=== PATIENT | female | born 1985 | race Hispanic/Latino ===

== ENCOUNTER 2022-07-21 10:12 | Day surgery (SDC) | payer OTHER ==
[2022-07-21] MEDS ORDERED: Ringers Lactate 1,000 ML IV ONE (10:39)
[2022-07-21] MEDS ORDERED: propofoL 200 MG/20 ML VIAL IV ONE (12:13)
[2022-07-21] MEDS ORDERED: LIDOCAINE 1% MPF 5 ML VIAL ONE (12:13)
[2022-07-21 13:41] VITALS: O2SAT 100
[2022-07-21 13:43] VITALS: BP 111/73; TEMP 97.7
== END 2022-07-21 13:36 | disposition home or self-care (01) ==
LOC: OR 10:12
PROVIDERS: ATTEND Surgery
PROC: 0DBN8ZX Excision of Sigmoid Colon, Via Natural or Artificial Opening Endoscopic, Diagnostic (ICD-10-PCS; principal; 2022-07-21 12:15)
DX: K62.5 Hemorrhage of anus and rectum (principal); K63.5 Polyp of colon; K57.30 Diverticulosis of large intestine without perforation or abscess without bleeding; K64.8 Other hemorrhoids
CPT/HCPCS: 88305; 45380; J2704; J2001; J7120

== ENCOUNTER 2022-12-05 06:30 | Emergency (ER) | payer OTHER ==
--- OUTSIDE RECORDS SUMMARY | 2022-12-05 06:35 | XMS REPORT | Continuity of Care Document ---
:1985 Author Organization [facility] t Address [address] [place] [address] [place] [id number] Care Team Providers Name Role Phone PCP, PATIENT DOES NOT HAVE A Primary Care Physician UnavailCt Holm Attending Clinician Unavailable RADIOLOGY Attending Clinician Unavailable Olivier Miller MD Attending Clinician Doctor Unassigned, [place] Attending Clinician Unavailable OLIVIER MILLER Attending Clinician Unavailable OLIVIER MILLER Attending Clinician Unavailable Radiology Attending Clinician Unavailable Makenzie Douglas RN Attending Clinician Unavailable EDILSON CANNON Attending Clinician Unavailable Only, Ang Db Test Attending Clinician Unavailable Edilson Flores Attending Clinician KAREN MA Admitting Clinician Unavailable Payers Payer Name Policy Type Policy Number Effective Date Expiration Date Guerrero MARTINEZ II [id number] 2021 00:00:00 Problems Condition Condition Condition Status Onset Resolution Last Treating Co mments Source Name Details Category Date Date Treatment Clinician Date No known No known Disease Unive rs active active ity of problems problems [facility] Allergies, Adverse Reactions, Alerts Allergy Allergy Status Severity Reaction(s) Onset Inactive Treating Comm ents Source Name Type Date Date Clinician No Known DA Active [facility] All[facility]ie 3-17 [place] 00:[facility]: d 00 [facility] No Known DA Active U [facility] Allergie 3-17 [place] 00:00: d 00 [facility] NO KNOWN Drug Active Univers ALLERGIE Class ity of S [place] [facility] Social History Social Habit Start Date Stop Date Quantity Comments Source Exposure to 2022-02-07 2022 Not sure [facility] SARS-CoV-2 (event) 00:00:00 12:39:00 Medica l Branch Sex Assigned At [birth year] [facility] y of [place] 00:00:00 00:00:00 Medical Branch Smoking Status Start Date Stop Date Source Tobacco smoking consumption [facility] Medications Ordered Filled Start Stop Current Ordering Indication Dosage Frequency Signature Comments Components Source Medication Medication Date Date Medication? Clinician (SIG) Name Name DULOXETINE Yes 30mg TAKE 1 Unive rs 30 mg 6-19 CAPSULE BY ity of capsule 00:00: MOUTH IN [place] 00 THE Medical MORNING Branch AND 1 CAPSULE IN THE EVENING. DULoxetine 2021-05 Yes 30mg Take 1 Unive rs 30 mg 1-18 capsule by ity of capsule 00:00: mouth in [place] 00 the Medical morning Branch and 1 capsule in the evening. DULoxetine 2021-05- No 30mg Take 1 Univ ers 30 mg 1-18 06-19 capsule by ity of capsule 00:00: 00:00 mouth in [place] 00 :00 the Medical morning Branch and 1 capsule in the evening. DULoxetine 2021-05 Yes TAKE 1 Unive rs 30 mg 1-09 CAPSULE BY ity of capsule 00:00: MOUTH [place] 00 EVERY Medical MORNING Branch DULoxetine 2021-05- No TAKE 1 Univ ers 30 mg 1-09 11-18 CAPSULE BY ity of capsule 00:00: 00:00 MOUTH [place] 00 :00 EVERY Medical MORNING Branch gabapentin 2021-05 Yes 100mg Take 1 Univ ers 100 mg 0-13 capsule by ity of capsule 00:00: mouth in [place] 00 the Medical morning Branch and 1 capsule in the evening. gabapentin 2021-05 Yes 100mg Take 1 Univ ers 100 mg 0-13 capsule by ity of capsule 00:00: mouth in [place] 00 the Medical morning Branch and 1 capsule in the evening. DULoxetine 2021-05 Yes 30mg Take 1 Unive rs (CYMBALTA) 0-13 capsule by ity of 30 mg 00:00: mouth in [place] capsule 00 the Medical morning. Branch gabapentin 2021- Yes 100mg Take 1 Univ ers 100 mg 0-13 capsule by ity of capsule 00:00: mouth in [place] 00 the Medical morning Branch and 1 capsule in the evening. DULoxetine 2021-1 Yes 30mg Take 1 Unive rs (CYMBALTA) 0-13 capsule by ity of 30 mg 00:00: mouth in [place] capsule 00 the Medical morning. Branch gabapentin 2021- Yes 100mg Take 1 Univ ers 100 mg 0-13 capsule by ity of capsule 00:00: mouth in [place] 00 the Medical morning Branch and 1 capsule in the evening. DULoxetine 2021- Yes 30mg Take 1 Unive rs (CYMBALTA) 0-13 capsule by ity of 30 mg 00:00: mouth in [place] capsule 00 the morning. Branch gabapentin 2021- Yes 100mg Take 1 Univ ers 100 mg 0-13 capsule by ity of capsule 00:00: mouth in [place] 00 the Medical morning Branch and 1 capsule in the evening. gabapentin 2021- Yes 100mg Take 1 Univ ers 100 mg 0-13 capsule by ity of capsule 00:00: mouth in [place] the Medical morning Branch and 1 capsule in the evening. DULoxetine 2021-05- No 30mg Take 1 Univ ers (CYMBALTA) 0-13 11-09 capsule by it y of 30 mg 00:00: 00:00 mouth in [place] capsule 00 :00 the Medical morning. Branch gabapentin 2021-0 Yes [id number] 300mg Take 300 Univers enacarbil 9-30 mg by ity of (HORIZANT) 00:00: mouth [place] 300 mg TbSR 00 daily. Medica l Branch gabapentin 2021-0 Yes [id number] 300mg Take 300 Univers enacarbil 9-30 mg by ity of (HORIZANT) 00:00: mouth [place] 300 mg TbSR 00 daily. Medica l Branch gabapentin 2021-0 Yes [id number] 300mg Take 300 Univers enacarbil 9-30 mg by ity of (HORIZANT) 00:00: mouth [place] 300 mg TbSR 00 daily. Medica l Branch gabapentin 2021-0 Yes [id number] 300mg Take 300 Univers enacarbil 9-30 mg by ity of (HORIZANT) 00:00: mouth [place] 300 mg TbSR 00 daily. Medica l Branch gabapentin 2022-0 Yes [id number] 300mg Take 300 Univers enacarbil 9-30 mg by ity of (HORIZANT) 00:00: mouth [place] 300 mg TbSR 00 daily. Medica l Branch gabapentin 2022-0 Yes [id number] 300mg Take 300 Univers enacarbil 9-30 mg by ity of (HORIZANT) 00:00: mouth [place] 300 mg TbSR 00 daily. Medica l Branch gabapentin 2022-0 Yes [id number] 300mg Take 300 Univers enacarbil 9-30 mg by ity of (HORIZANT) 00:00: mouth [place] 300 mg TbSR 00 daily. Medica l Branch gabapentin 2022-0 2022- No [id number] 300mg Take 300 Univers enacarbil 9-30 10-13 mg by ity of (HORIZANT) 00:00: 00:00 mouth [place] 300 mg TbSR 00 :00 daily. Medica l Branch gabapentin 2022-0 2022- No [id number] 300mg Take 300 Univers enacarbil 9-30 10-13 mg by ity of (HORIZANT) 00:00: 00:00 mouth [place] 300 mg TbSR 00 :00 daily. Medica l Branch gabapentin 2022-0 Yes TAKE 1 Unive rs 100 mg 9-13 CAPSULE 3 ity of capsule 00:00: TIMES A DAY FOR Medical FACIAL Branch PAIN gabapentin 2022-0 Yes TAKE 1 Unive rs 100 mg 9-13 CAPSULE 3 ity of capsule 00:00: TIMES A DAY FOR Medical FACIAL Branch PAIN gabapentin 2022-0 Yes TAKE 1 Unive rs 100 mg 9-13 CAPSULE 3 ity of capsule 00:00: TIMES A DAY FOR Medical FACIAL Branch PAIN gabapentin 2022-0 Yes TAKE 1 Unive rs 100 mg 9-13 CAPSULE 3 ity of capsule 00:00: TIMES A DAY FOR Medical FACIAL Branch PAIN gabapentin 2022-0 Yes TAKE 1 Unive rs 100 mg 9-13 CAPSULE 3 ity of capsule 00:00: TIMES A DAY FOR Medical FACIAL Branch PAIN gabapentin 2022-0 Yes TAKE 1 Unive rs 100 mg 9-13 CAPSULE 3 ity of capsule 00:00: TIMES A [place] 00 DAY FOR Medical FACIAL Branch PAIN gabapentin Yes TAKE 1 Unive rs 100 mg 9-13 CAPSULE 3 ity of capsule 00:00: TIMES A 00 DAY FOR Medical FACIAL Branch PAIN gabapentin 2021- No TAKE 1 Univ ers 100 mg 9-13 10-13 CAPSULE 3 ity of capsule 00:00: 00:00 TIMES A [place] 00 :00 DAY FOR Medical FACIAL Branch PAIN gabapentin 2021- No TAKE 1 Univ ers 100 mg 9-13 10-13 CAPSULE 3 ity of capsule 00:00: 00:00 TIMES A [place] 00 :00 DAY FOR Medical FACIAL Branch PAIN Vital Signs Vital Name Observation Time Observation Value Comments Source Systolic blood 2022 17:50:00 132 mm[facility]Hg[facility] Diastolic blood 2022 17:50:00 87 mm[facility]Hg[facility] Medical Branch Heart rate 2022 17:50:00 89 /min [facility] Body height 2022 17:50:00 170.2 cm [facility] Body weight 2022 17:50:00 97.07 kg [facility] BMI 2022 17:50:00 33.52 kg/m2 [facility] Oxygen saturation 2022 17:50:00 94 /min [facility] in Arterial blood Medical Br anch by Pulse oximetry Procedures Procedure Date / Time Performed Performing Clinician [facility] e EXTERNAL PROVIDER 2022-03-13 05:01:00 Doctor Unassigned, No Univ [facility] RECORDS Name Medical Branch REFERRAL- 2022-01-20 05:01:00 Doctor Unassigned, No [facility] REQUEST/RESPONSE Name Medical Branch BI ULTRASOUND BREAST 2021-11-09 16:55:53 Karen aM [facility] COMPLETE LEFT Medical Branch Encounters Start End Encounter Admission Attending Care Care Encounter Source Date/Time Date/Time Type Type Clinicians Facility Department ID 2020-08-03 Inpatient RODOLFO PlascenciaERNESTINE HCAPM [id number] [facility] 08:37:02 [facility] 2022-12-14 2022-12-14 Outpatient R RADIOLOGY [facility] [id number] Univers 00:00:00 00:00:00 ity of [facility] 2022-11-23 2022-11-23 Outpatient R RADIOLOGY [facility] [id number] Univers 00:00:00 00:00:00 ity of [facility] 2022-10-27 2022-10-27 [facility] [id number] Univers 00:00:00 00:00:00 [facility] [id number] ity of [place] 4.2.7.2.686 Ramy as ESTEVAN?BLEA [phone] [address] OFFICE [facility] 2022-04-07 2022-04-07 [facility]phone [facility] 1.2.840.114 [id number] Univers 00:00:00 00:00:00 [facility] [id number] ity of [place] 4.2.7.2.686 Ramy as ESTEVAN?BLEA [id number] [address] OFFICE [facility] 2022-03-28 2022-03-[address] [facility] 1.2.840.114 [id number] Univers 00:00:00 00:00:00 [facility] [id number] ity of [place] 4.2.7.2.686 Ramy as ESTEVAN?BLEA [id number] [address] 2022-03-13 2022-03-13 Orders Doctor GONGORA 1.2.840.114 [id number] Univers 00:00:00 00:00:00 Only Unassigned, ALEXANDRA [id number] ity of [place] [facility] 4.2.7.2.686 Ramy as [id number] [address] 2022-03-02 2022-03-02 Telephone Formerly [facility] 1.2.840.114 [id number] Univers 00:00:00 00:00:00 [facility] [id number] ity of [place] 4.2.7.2.686 Ramy as ESTEVAN?BLEA [phone] [address] OFFICE [facility] 2022-02-25 2022-02-25 Refill Angela [facility] 1.2.840.114 [id number] Univers 00:00:00 00:00:00 [facility] [id number] ity of [place] 4.2.7.2.686 Ramy as ESTEVAN?BLEA [id number] Ak renée HASTINGS [address] [place] [address] 2022-02-23 2022-02-23 Patient Doctor [facility] 1.2.840.114 [id number] Univers 00:00:00 00:00:00 Secure Msg Unassigned, HEALTH [id number] ity of [place] 4.2.7.2.686 Ramy as ESTEVAN?BLEA [phone] Ak renée [address] 2022-02-22 2022-02-22 Telephone Angela [facility] 1.2.840.114 [id number] Univers 00:00:00 00:00:00 [facility] [id number] ity of [place] 4.2.7.2.686 Ramy as ESTEVAN?BLEA [id number] Ak renée HASTINGS [address] [place] [address] 2022-02-22 2022-02-22 Telephone Angela [facility] 1.2.840.114 [id number] Univers 00:00:00 00:00:00 [facility] [id number] ity of [place] 4.2.7.2.686 Ramy as ESTEVAN?BLEA [phone] Ak renée [address] 2022 2022 Outpatient R OLIVIER MILLER [facility] [id number] Univers 13:00:00 13:37:43 OLIVIER MILLER ity of [facility] 2022 2022 Office Angela [facility] 1.2.840.114 [id number] Univers 13:00:00 13:37:43 Visit [facility] [id number] ity of [place] 4.2.7.2.686 Ramy as ESTEVAN?BLEA [id number] Ak renée HASTINGS [address] [place] [address] 2022-01-20 2022-01-20 Orders Doctor ROLAN 1.2.840.114 [id number] Univers 00:00:00 00:00:00 Only Unassigned, ALEXANDRA 350.1.13.10 ity of [place] [facility]PITAL 4.2.7.2.686 Ramy as [phone] [address] 2021-11-09 2021-11-09 [facility] Radiology [facility] 1.2.840.114 [id number] Univers 10:44:35 23:59:00 Encounter SPECIALTY [id number] ity of [place] [id number] Ak renée MOYA [address] [facility] 2021-11-09 2021-11-09 [facility] Radiology [facility] 1.2.840.114 [id number] Univers 10:43:54 10:43:54 Encounter SPECIALTY [id number] ity [place] [id number] Ak renée MOYA [address] [facility] 2021-11-09 2021-11-09 Outpatient R RADIOLOGY [facility] [id number] Univers 00:00:00 10:43:54 ity of [facility] 2021-08-25 2021-08-25 Outpatient R RADIOLOGY [facility] [id number] Univers 14:16:26 23:59:00 ity of [facility] 2021-08-25 2021-08-25 [facility] Radiology [facility] 1.2.840.114 [id number] Univers 14:16:26 23:59:00 Encounter [place] 350.1.13.10 ity of [place] 4[place]2.7.2.686 [place] [id number] [address] 2021-08-25 2021-08-25 Emergency [facility] [id number] Univers 14:09:16 14:09:00 ity of [facility] 2021-06-24 2021-06-24 Telephone ROLAN Douglas 1.2.991.162 [id number] Univers 00:00:00 00:00:00 Makenzie ALEXANDRA 350.1.13.10 it y of HOSPITAL 4.2.7.2.686 Ramy as [id number] [facility] 019 Branch 2021-06-23 2021-06-23 Outpatient R DONIS [facility] [id number] Univers 14:00:00 14:06:23 EDILSON ity [facility] 2021-06-23 2021-06-23 Laboratory Only, Ang Db Test [facility] 1.2.8 40.114 [id number] Univers 14:00:00 14:06:23 Only Donis Edilson [facility] 350.1.13.10 ity of [place] 4.2.7.2.686 Ramy as ESTEVAN?BLEA [id number] [address] MEDICAL OFFICE BUILDING 2021-06-23 2021-06-23 Outpatient R DONIS [facility] [id number] Univers 14:00:00 14:00:00 EDILSON ity [facility] 2021-06-23 2021-06-23 Orders Doctor ROLAN 1.2.840.[id number] [place] [address] 00:00:00 00:00:00 Only Unassigned, ALEXANDRA 350.1.13.10 [facility] [place] [facility] 4.2.7.2.686 Ramy as [phone] [address] Results Test Description Test Time Test Comments Results Result Comments Source SURG 2020-08-06 16:13:00 Test Item Value Reference Range Interpretation Comme nts SURG RUN DATE: (test 08/06/20 [place] harry - JOSE ANTONIO PAGE 1 RUN TIME: 1613 Specimen Inquiry RUN USER: INTERFACE code = PATIENT: SURGDEVIN HOPE ACCT #: [id number] LOC: VAISHALI Godoy #: [id number] AGE/SX: 35/F ROOM: RE08/05/20REG DR: Ct Plascencia : 85 BED: DIS: STATUS : DEP [facility] TLOC: SPEC #: [id number] RECD: 08/05/201757 STATUS: DEBORAH RE #: [id number] DESTINY: 08/05/20- [address]: Ct Plascencia MD ENTERED: 08/05/20 SP TYPE: SURG OTHR DR: No Primary or Family PhysicianORDERED: SURG PATH LVL 2, SURG PATH LVL 08/20 COPIES TO: No Primary or Family Physician Ct Plascencia MD [address] [place] [address] HISTOLOGY: TISSUE ID BLK PCS YAYO LEV SC OCEDURE DISPOSITION ____ ___ ___ ___ FALLOPIAN TUBE, A FALLOPIAN TUBE, B FALLOPIAN TUBE, C PROCEDURES: SURG PATH LVL 2 (08/06/20-906) SURG PATH LV L 4 (08/05/20-2025) TISSUES: A. FALLOPIAN TUBE, NOS - BILATERALFALLOPIAN TUBES B. FALLOPIAN TUBE, NOS - LEFT IMPLANT ENDOMETRIOSIS C. FALLOPIAN TUBE, NOS - RIGHT IMPLANT NODULE CLINICAL HISTORY CONTRACEPTI ON - Z30.09; ABNORMAL FINDING/ASSEMBLY MACHINE SET UP MECHANIC - Z01.411 CPT CODES CPT CODE(S): 56426z6 , 76077 , , , , , FINAL DIAGNO SIS A. Fallopian tubes, bilateral, salpingectomy: BILATERAL COMPLETE CROSS-SECTIONS OF UNREMARKAB LE FALLOPIAN TUBE PARATUBAL CYSTS B. Soft tissue, left IP, biopsy: SOFT TISSUE WITH FOCAL HEMORRHAGE CONTINUED ON NEXT PAGE RUN DATE: 08/06/20 [facility] [place] Ambriz nd - LAB PAGE 2 RUN TIME: 1613 Specimen Inquiry RUN USER: INTERFACE SPEC #: [id number] PATIENT: DEVIN GALLOWAY #[id number] (Continued) FINAL DIAGNOSIS (Continued) C. Soft tissue, right IP, biopsy: SOFT TISSUE WITH HEMORRHAGIC CYST GROSS DESCRIPTION A. Bilateral fal lopian tubes. Received in formalin is a fallopian tube that is purple-woods with a fimbriated end that m easures 6.5 x 0.7 x 0.4 cm. Sections through this tube do not reveal any obvious masses or lesions. T here are three separate fragments of tube in the container. The first fragment has a fimbriated en d and is light purple and measures 2.5 x 0.5 x 0.5 cm. Sections through this fragment do not reveal any m asses or lesions. The second fragment is a portion of tube with no fimbria that measures 3.1 x 0.5 x 0. 5 cm. Sections through this tissue do not reveal any masses or lesions. The third fragment is a portion of soft tissue, measuring 1.3 x 0.9 x 0.9 cm. Sections through this segment reveals a cyst filled with t hin clear fluid. Compress Trucker sections are submitted as follows: A1 sections through first descr ibed fallopian tube; A2 - entire second segment of tube with attached fimbria; A3 - client representative sections through tube with no fimbria; A4 - cystic nodule, bisected. B. Left IP endometriosis. Recei liz in formalin is a single fragment of soft red- woods tissue, measuring 0.3 x 0.2 x 0.1 cm. The entire spe cimen is submitted as B. C. Right IP nodule. Received in formalin is a segment of dark purple-woods t issue, measuring 0.8 x 0.7 x 0.7 cm. The tissue is trisected to reveal a cystic area filled with dark red blood. The entire specimen is submitted as C. bk/nr Grossing performed at [facility], [address] [place] [address], [address], [place] [address]. [employer] Supervisor: Abelarod James M.D. MICROSCOPIC D ESCRIPTION A. Bilateral fallopian tubes. Sections demonstrate complete cross-sections of bilateral fallopian tubes. Portions of fimbriated end are also identified. Paratubal cysts are seen. No malignant features are identified. B. Left IP endometriosis. Sections demonstrate a portion of soft tissue. Foca l hemorrhage is identified. No definite endometriosis is seen. C. Right IP nodule. Sections demonstrate a portion of soft tissue. A hemorrhagic cystic structure is identified. No evidence of endometriosis is seen. No malignancy is identified. CONTINUED ON NEXT PAGE RUN DATE: 08/06/20 [place] d - LAB PAGE 3 RUN TIME: 161 Specimen Inquiry RUN USER: INTERFACE SPEC #: [id number] PATIENT: GALLOWAYDEVIN #[id number] (Continued) Signed SIGNATURE ON FILE LisaAden nolanphil Colon 08/06/20 161 END OF REPORT COVID 19 INHOUSE [id number] 11:44:00 Test Item Value Reference Range Interpretation Comments COVID 19 INHOUSE AG NEGATIVE Negative Per manu facturer, (test code = negative result s should [id number]) be treated aspr esumptive and, if inconsi stent with clinical signs andsymptoms or necessary for patient man agement, should betested with an alternative mol ecular assay. Negative resultsdo not preclude SA RS-CoV-2 infection and s hould not be usedas the s ole basis for patient man agement decisions. Nega tive results should be considered in t he context of apatient's r ecent exposures, hist ory, presence of cli nicalsigns and symptoms co nsistent with COVID-19. CBC W/AUTO [id number] 11:24:00 Test Item Value Reference Range Interpretation Comments WHITE BLOOD CELL (test code = 6.7 K/mm3 3.5-11.0 N WBC) RED BLOOD CELL (test code = 4.21 M/mm3 4.70-6.10 L RBC) HEMOGLOBIN (test code = HGB) 13.1 G/DL 10.4-14.9 N HEMATOCRIT (test code = HCT) 39.0 % 31.5-44.1 N MEAN CELL VOLUME (test code = 92.6 Fl 84.5-98.6 N MCV) MEAN CELL HGB (test code = MCH) 31.1 pg 27.0-34.2 N MEAN CELL HGB CONCETRATION 33.6 G/DL 31.5-34.0 N (test code = MCHC) RED CELL DISTRIBUTION WIDTH 11.6 SD 11.5-14.5 N (test code = RDW) PLATELET COUNT (test code = 232 K/mm3 150-450 N PLT) MEAN PLATELET VOLUME (test code 11.40 fL 7.0-10.5 H = MPV) NEUTROPHIL % (test code = NT%) 67.1 % 40-76 N IMMATURE GRANULOCYTE % (test 0.1 % 0.0-5.0 N code = IG%) LYMPHOCYTE % (test code = LY%) 26.4 % 20.5-51.1 N MONOCYTE % (test code = MO%) 5.0 % 1.7-9.3 N EOSINOPHIL % (test code = EO%) 1.0 % 0.0-6.0 N BASOPHIL % (test code = BA%) 0.4 % 0.0-2.0 N NUCLEATED RBC % (test code = 0.0 /100WBC% 0.0-1.0 N NRBC%) NEUTROPHIL # (test code = NT#) 4.5 K/mm3 1.8-7.6 N IMMATURE GRANULOCYTE # (test 0.01 x10 3/uL 0.00-0.03 N code = IG#) LYMPHOCYTE # (test code = LY#) 1.8 K/mm3 0.6-3.2 N MONOCYTE # (test code = MO#) 0.3 K/mm3 0.3-1.1 N EOSINOPHIL # (test code = EO#) 0.1 K/mm3 0.0-0.4 N BASOPHIL # (test code = BA#) 0.0 K/mm3 0.0-0.1 N NUCLEATED RBC # (test code = 0.0 K/mm3 0.0-0.1 N NRBC#) MANUAL DIFF REQUIRED (test code NO DIFF/SCN CRITERIA = MDIFF) URINALYSIS [id number] 11:20:00 Test Item Value Reference Range Interpretation Comments UA GLUCOSE DIPSTICK (test NEGATIVE mg/dL NEG code = DGLUU) UA BILIRUBIN DIPSTICK (test NEGATIVE mg/dL NEG code = BILU) UA KETONE DIPSTICK (test NEGATIVE mg/dL NEG code = KETU) UA SPECIFIC GRAVITY (test 1.025 SG 1.005-1.030 code = SGU) UA BLOOD DIPSTICK (test 1+ mg/DL NEG A code = SULAIMAN) UA PH DIPSTICK (test code = 5.5 pH UNITS 5.0-7.0 NASIMA) UA PROTEIN DIPSTICK (test NEGATIVE mg/dL NEG code = PROU) UA UROBILINIOGEN DIPSTICK 0.2 mg/dL <2.0 (test code = URO) UA NITRITE DIPSTICK (test NEGATIVE SCREEN NEG code = LACI) UA LEUKOCYTE ESTERASE NEGATIVE Leuk/mcL NEGATIVE DIPSTICK (test code = LEUU) Urine Specimen Type: Clean CatchUR HCG [id number] 11:20:00 Test Item Value Reference Range Interpretation Comments UR HCG QUAL (test code = HCGQLU) NEGATIVE Urine Specimen Type: Clean CatchURINALYSIS [id number] 11:20:00 Test Item Value Reference Range Interpretation Comments UA GLUCOSE DIPSTICK (test NEGATIVE mg/dL NEG code = DGLUU) UA BILIRUBIN DIPSTICK (test NEGATIVE mg/dL NEG code = BILU) UA KETONE DIPSTICK (test NEGATIVE mg/dL NEG code = KETU) UA SPECIFIC GRAVITY (test 1.025 SG 1.005-1.030 code = SGU) UA BLOOD DIPSTICK (test 1+ mg/DL NEG A code = SULAIMAN) UA PH DIPSTICK (test code = 5.5 pH UNITS 5.0-7.0 NASIMA) UA PROTEIN DIPSTICK (test NEGATIVE mg/dL NEG code = PROU) UA UROBILINIOGEN DIPSTICK 0.2 mg/dL <2.0 (test code = URO) UA NITRITE DIPSTICK (test NEGATIVE SCREEN NEG code = LACI) UA LEUKOCYTE ESTERASE NEGATIVE Leuk/mcL NEGATIVE DIPSTICK (test code = LEUU) Urine Specimen Type: Clean CatchUR HCG [id number] 11:20:00 Test Item Value Reference Range Interpretation Comments UR HCG QUAL (test code = HCGQLU) NEGATIVE NEGATIVE Urine Specimen Type: Clean Catch Notes Date/Time Note Provider Source 2020-08-05 09:47:00-00:00 [id number] [address] PATIENT NAME: DEVIN GALLOWAY ADMIT DATE: ACCOUNT NO: [id number] ROOM NO: AGE: 35 REPORT TYPE: OPERATIVE REPORT SEX: F ADMITTING PHYSICIAN: ATTENDING PHYSICIAN: Ct Plascencia MD OPERATION DATE: 08/05/2020 PREOPERATIVE DIAGNOSES: 1. Pelvic pain. 2. Desired permanent sterilization. POSTOPERATIVE DIAGNOSES: 1. Pelvic pain. 2. Desired permanent sterilization. 3. Endometriosis. PROCEDURES: Diagnostic laparoscopy; lysis of sig moid adhesions from the posterior wall of the uterus, left sidewall, and uterosacral; endometriosis fulguration and excision; and bilateral salpinge ctomy. SURGEON: Ct Plascencia MD ANESTHESIA: General endotracheal. PULP COOKER: Gemma Ferguson. ESTIMATED BLOOD LOSS: Minimal. SPECIMENS: Bilateral tubes. Endometriosi s from the left IP fulgurated and then the remaining excised and on the right side comp letely excised. COMPLICATIONS: No complications. DRAINS: No drains. CONDITION: The patient's condition is stable. INDICATIONS: The patient is a 35-year-old done w ith childbearing, on oral contraceptive pills. Her pelvic pain unr esolved. Consented for bilateral tubal ligation or salpingectomy, diagnostic laparoscop y, endometriosis excision if present. She was also explained that she could have bilateral salpingectomy if the tube appeared to have pa thology other endometriosis or scar tissue or hydro or hematosalpinx. PROCEDURE IN DETAIL: After i nformed consent was verified, she was taken back to the OR. No antibiotics indicated for this proced ure per ACOG guidelines. PATIENT NAME: DEVIN GALLOWAY [id number] The patient was in supine fashion on the operati ng table. Timeout was done. General anesthesia was given. She was placed in dorsal lithotomy position. Arms tucked by the side. Aft er positioning was checked, abdomen, vulva, vagina, and perineum prepped and draped in sterile fashi on. Mohamud placed to drain the bladder. Diagnostic VCare introduced into the ut erus and fixed in place. This area was draped. A 1-cm infraumbilical incision was made with a s calpel using open laparoscopy technique. Fascia was incised, tagged with 0 Jah ryl sutures. Peritoneum entered sharply. S retractors placed. Gia int roduced. Site of entry checked, unremarkable. Five suprapubic and left lower quadrant ports were placed under direct vision a fter identifying the site of entry, all 3 sites were preinjected with 0.25% Naz ine even before incisions were placed at the skin on all 3 and skin and fascia on both 5 ports. After the patient was placed in [place], close examination was performed on all the peritoneal surfaces, upper abdominal cavity, and appendix, all appeared to be completely unremarkable. There were 2 implants of endometriosis, one on the left IP that appeared to be slightly more flatte r very close to the ovarian artery and then the one on the right side appear ed to be a little bit more independent and in the lateral broad ligament. The tube on the left side appeared to be slightl y more prominent and dilated; however, no gross appearance of hydrosalpinges. The mesosalpinx appeared to have lesion suspicious for endometriosis, so dec ision was made to remove the tubes. ____ scar tissue posteriorly sigmoid adhesions w ere seen to the posterior uterine wall, distal uterosacral ligament, and t he left lower quadrant to the sidewall. The left lower quadrant adhesions had to be taken down in order for me to visualize and operate on the left IP prope rly, so these were taken down with the help of sharp disse ction and cutting with scissors as well as with the LigaSure. Once all this was dropped down , then the left mesosalpinx was picked up from the distal and then excised. The tube wa s removed intact. The sigmoid adhesions from the posterior aspect were then taken down with sharp dissection as well as with the LigaSure. Once all t his was done and we exposed the entire pelvic cavity, pelvic perito neum was inspected closely and there was no evidence of any endometriosis seen in this area. No anato mical distortion of the ureteric courses. Then, on the right side, opene d up the IP ligament in parallel to the uteroovarian vessels. Once this was done and exposed, the endometriotic implant appeared to be dis tinct from the vessel complex and this was excised. This was pulled out through the sup rapubic incision at the suprapubic trocar. Then, on the left side IP, th e peritoneum over the IP was opened up and then the endometriosis was picked up with the help of the tip of [place] grasper and then on attempt to excise it at the base, it was fulgurated with the LigaSure and whatever was left behind t he remnant was removed and handed out as a specimen. The tube on the right side w as then taken down and pulled out, it was dilated in some places with the paratubal cyst, so it was severed and removed in 3 pieces but all 3 pieces were put to gether and all specimens were labeled appropriately. Thorough irrigation and suction was performed. Excellent hemostasis was secured and ensured that all the trocars were re moved under direct vision, injected at the fascial site and the skin with t he help of the 0.25% Marcaine PATIENT NAME: DEVIN GALLOWAY [id number] and gas was desufflated. Gia was chrissy liz. Fascia was injected with Marcaine as well as the skin. Then the fascia closed with the help of the tagged 0 Vicryl sutures tied to each other. All skin inci sions closed with the help of 4-0 Vicryl and Steri-Strips placed. VCare and Fo miguel were removed. Instrument and sponge counts were correct at the end of the case. The patient tolerated the procedure well. EBL was minimal. Dictated By: Ct Plascencia MD WT: OP:ZAY/FRANCIE/TANYA Conf#: [id number]/DID#: [id number] Authenticated by Ct Plascencia MD On 08/19 05:13:07 PM at 1713 PATIENT NAME: DEVIN GALLOWAY 8182 2020-08-05 08:08:00-00:00 [facility] ([facility]) Brief Op Note REPORT#:[id number] REPORT STATUS: Signed DATE:08/05/20 TIME:08 PATIENT: DEVIN GALLOWAY UNIT #: [id number] ROOM/BED: : 85 AGE: 35 SEX: F ATTEND: Sa porter Plascencia MD ADM AUTHOR: Ct Plascencia MD * ALL edits or amendments must be made on the el [employer]/computer document * Op/Inv Proc Note - Brief Pre-procedure diagnosis: Pelvic pain, desired permanent sterilization Post-procedure diagnosis: same as pre procedure dx, Endometriosis, sigmoid adhesions Procedures performed: Laparoscopy bilateral tubal ligation, en dometriosis excision, lysis of sigmoid adhesions Primary Surgeon: heavenly Wood Gouger(s): nita HAYDEN Anesthesia: general anesthesia Findings: sigmoid adhesions to post uterine wall, left USL and to LLQ side wall, endometriosis implants on le ft IP smaller than on the right, right excised, left fulgrated adn whatever was remaining was removed , left tube slightly more prominent , right mesosalpin x with areas suspicious for endometriosis, so, tubes were removed Complications: none Estimated blood loss in ml's: none Specimens removed/altered: bilateral tubes, endo implants on right >left IP ligament Approach: laparoscopic Wound class: clean Disposition: stable at 0939 RPT #: [id number] END OF REPORT
[2022-12-05] MEDS ORDERED: METHYLPREDNISOLONE 125 MG INJ ONE (07:34)
[2022-12-05] MEDS ORDERED: LEVALBUTEROL 1.25 MG/3 ML NEB ONE (07:34)
[2022-12-05] MEDS ORDERED: NA CHLORIDE 0.9% 1,000 ML ONE (07:38)
[2022-12-05 07:46] LABS: Absolute Lymphocytes (CBC) 1.2 K/uL (0.7-4.9); Hematocrit 38.1 % (36.0-45.0); Lymphocytes % 12.1 % (15.3-44.8); MCV 87.5 fL (80-100); MPV 9.5 fL (7.6-11.3); RBC Red Blood Cell Count 4.35 M/uL (3.86-4.86)
[2022-12-05 08:00] LABS: Potassium 3.7 mEq/L (3.5-5.1)
--- NOTE | 2022-12-05 08:12 | RAD REPORT ---
EXAM DESCRIPTION: Andre Single View12/05/2022 7:54 am CLINICAL HISTORY: Shortness of breath COMPARISON: none FINDINGS: The lungs appear clear of acute infiltrate. The heart is normal size IMPRESSION: No acute abnormalities displayed
--- NOTE | 2022-12-05 08:52 | ER ---
Nurse's Notes [facility] Name: Jolene Buchanan Age: 37 yrs Sex: Female : 1985 Arrival Date: 12/05/2022 Time: 06:30 Bed 15 Private MD: Diagnosis: Shortness of breath;SARS-associated coronavirus as the cause of diseases classified elsewhere Presentation: 12/05 06:36 Chief complaint: Patient states: Yesterday I tested positive for Covid at home and ha1 today I am feeling shortness of breath. I have been having headache and cough for about a week. 06:36 Coronavirus screen: Vaccine status: Patient reports receiving the 2nd dose of the covid ha1 vaccine. ProRadis. Ebola Screen: No symptoms or risks identified at this time. Initial Sepsis Screen: Does the patient meet any 2 criteria? No. Patient's initial sepsis screen is negative. Does the patient have a suspected source of infection? No. Patient's initial sepsis screen is negative. Risk Assessment: Do you want to hurt yourself or someone else? Patient reports no desire to harm self or others. Onset of symptoms was November 30, 2022. 06:36 Method Of Arrival: Ambulatory ha1 06:36 Acuity: DYLON 3 ha1 Triage Assessment: 06:36 General: Appears uncomfortable, Behavior is calm, cooperative. Pain: Denies pain. ha1 Neuro: Level of Consciousness is awake, alert, obeys commands, Oriented to person, place, time, situation. Cardiovascular: Patient's skin is warm and dry. Respiratory: Reports shortness of breath at rest cough that is non-productive, Airway is patent Respiratory effort is even, unlabored, Respiratory pattern is regular, symmetrical, Onset: The symptoms/episode began/occurred gradually, the patient has mild shortness of breath. GI: No signs and/or symptoms were reported involving the gastrointestinal system. Abdomen is round non-distended. : No signs and/or symptoms were reported regarding the genitourinary system. Derm: Skin is pink, warm \T\ dry. Musculoskeletal: Circulation, motion, and sensation intact. Range of motion: intact in all extremities. Historical: - Allergies: 06:51 No Known Allergies; ha1 - PMHx: 06:51 Asthma; ha1 - Immunization history:: Adult Immunizations up to date. - Social history:: Smoking status: Patient denies any tobacco usage or history of. Screenin:36 [facility] ED Fall Risk Assessment (Adult) History of falling in the last 3 months, ha1 including since admission No falls in past 3 months (0 pts) Confusion or Disorientation No (0 pts) Intoxicated or Sedated Yes (3 pts) Impaired Gait No (0 pts) Mobility Assist Device Used No (0 pt) Altered Elimination No (0 pt) Score/Fall Risk Level 0 - 2 = Low Risk Oriented to surroundings, Maintained a safe environment, Educated pt \T\ family on fall prevention, incl call for assistance when getting out of bed. Abuse screen: Denies threats or abuse. Denies injuries from another. Nutritional screening: No deficits noted. Nutritional screening: No deficits noted. 07:46 Tuberculosis screening: No symptoms or risk factors identified. ko1 Assessment: 07:17 General: Appears uncomfortable, Behavior is cooperative, appropriate for age, anxious. ko1 Pain: Denies pain. Neuro: No deficits noted. Cardiovascular: Rhythm is sinus tachycardia. Respiratory: Airway is patent Breath sounds are clear bilaterally. GI: No deficits noted. : No deficits noted. EENT: No deficits noted. Derm: No deficits noted. Musculoskeletal: No deficits noted. Vital Signs: 06:36 BP 155 / 105; Pulse 95; Resp 23; Temp 98.5; Pulse Ox 100% on R/A; Weight 90.72 kg; ha1 Height 5 ft. 7 in. ; 07:17 BP 161 / 102; Pulse 103; Resp 28; Pulse Ox 100% on R/A; ko1 07:46 BP 153 / 82; Pulse 106; Resp 20; Pulse Ox 100% on Nebulizer Mask; ko1 08:05 BP 135 / 78; Pulse 106; Resp 18; Pulse Ox 100% on R/A; ko1 08:27 BP 137 / 83; Pulse 102; Resp 18; Pulse Ox 98% on R/A; ko1 06:36 Body Mass Index 31.32 (90.72 kg, 170.18 cm) ha1 ED Course: 06:34 Patient arrived in ED. ag3 06:36 Arm band placed on right wrist. ha1 06:36 Patient has correct armband on for positive identification. Placed in gown. Bed in low ha1 position. Call light in reach. Side rails up X 1. 06:51 Triage completed. ha1 07:06 Perry Jaramillo MD is Attending Physician. kdr 07:07 Valencia Patel, RN is Primary Nurse. ko1 07:30 Client placed on continuous cardiac and pulse oximetry monitoring. NIBP monitoring ko1 applied. associate java developer on. Door closed. Noise minimized. Lights dimmed. Warm blanket given. 07:40 Inserted saline lock: 20 gauge in right antecubital area, using aseptic technique. ko1 Blood collected. 07:44 Flu Sent. ko1 07:44 COVID-19 SARS RT PCR Sent. ko1 07:44 Chem 7 Sent. ko1 07:44 CBC with Diff Sent. ko1 07:46 Provided Education on: NA. ko1 07:55 CXR XRAY In Process Unspecified. EDMS 08:53 No provider procedures requiring assistance completed. ko1 09:08 IV discontinued, intact, bleeding controlled, No redness/swelling at site. Pressure ko1 dressing applied. Administered Medications: 07:40 Drug: MethylPrednisoLONE IVP 125 mg Route: IVP; Site: right antecubital; ko1 08:02 Follow up: Response: No adverse reaction ko1 07:40 Drug: Levalbuterol Inhalation 1.25 mg Route: Inhalation; ko1 08:02 Follow up: Response: No adverse reaction; Marked relief of symptoms ko1 07:43 Drug: NS 0.9% IV 1000 ml Route: IV; Rate: 1 bolus; Site: right antecubital; ko1 Medication: 07:40 VIS not applicable for this client. ko1 Outcome: 08:51 Discharge ordered by . kdr 09:08 Discharged to home ambulatory. ko1 09:08 Condition: improved 09:08 Discharge instructions given to patient, Instructed on discharge instructions, follow up and referral plans. medication usage, Demonstrated understanding of instructions, follow-up care, medications, Prescriptions given X 2. 09:13 Patient left the ED. ko1 Signatures: Dispatcher [employer] EDAL Perry Jaramillo MD MD [facility] Gena Ledesma ag3 Ruby Gardner, RN RN ha1 Valencia Patel, RN RN ko1
--- NOTE | 2022-12-05 08:52 | EDPHYS ---
Physician Documentation [facility] Name: Jolene Buchanan Age: 37 yrs Sex: Female : 1985 Arrival Date: 12/05/2022 Time: 06:30 Bed 15 Private MD: ED Physician Perry Jaramillo HPI: 12/05 09:49 This 37 yrs old Female presents to ER via Ambulatory with complaints of kdr Breathing Difficulty. 09:49 The patient has shortness of breath at rest, with light activity. Onset: The kdr symptoms/episode began/occurred gradually, 3 day(s) ago. Duration: The symptoms are continuous. The patient's shortness of breath is aggravated by coughing. 09:49 Patient states that she tested positive for COVID yesterday at home. She is feeling kdr very short of breath. She is also having mild headaches and cough for about a week. Patient otherwise appears mildly uncomfortable but not toxic. Severity of symptoms: At their worst the symptoms were mild in the emergency department the symptoms are unchanged. The patient has not experienced similar symptoms in the past. The patient has not recently seen a physician. Historical: - Allergies: 06:51 No Known Allergies; ha1 - PMHx: 06:51 Asthma; ha1 - Immunization history:: Adult Immunizations up to date. - Social history:: Smoking status: Patient denies any tobacco usage or history of. ROS: 09:49 Constitutional: Negative for fever, chills, and weight loss, Eyes: Negative for injury, kdr pain, redness, and discharge, ENT: Negative for injury, pain, and discharge, Neck: Negative for injury, pain, and swelling, Cardiovascular: Negative for chest pain, palpitations, and edema, Abdomen/GI: Negative for abdominal pain, nausea, vomiting, diarrhea, and constipation, Back: Negative for injury and pain, : Negative for injury, bleeding, discharge, and swelling, MS/Extremity: Negative for injury and deformity, Skin: Negative for injury, rash, and discoloration, Neuro: Negative for headache, weakness, numbness, tingling, and seizure activity. Psych: Negative for depression, anxiety, suicide ideation, homicidal ideation, and hallucinations, Allergy/Immunology: Negative for hives, rash, and allergies, Endocrine: Negative for neck swelling, polydipsia, polyuria, polyphagia, and marked weight changes, Hematologic/Lymphatic: Negative for swollen nodes, abnormal bleeding, and unusual bruising. 09:49 Respiratory: Positive for cough, with no reported sputum, dyspnea on exertion, shortness of breath, on exertion. Exam: 09:49 Constitutional: This is a well developed, well nourished patient who is awake, alert, kdr and in mild distress. Head/Face: Normocephalic, atraumatic. Eyes: Pupils equal round and reactive to light, extra-ocular motions intact. Lids and lashes normal. Conjunctiva and sclera are non-icteric and not injected. Cornea within normal limits. Periorbital areas with no swelling, redness, or edema. Neck: Trachea midline, no thyromegaly or masses palpated, and no cervical lymphadenopathy. Supple, full range of motion without nuchal rigidity, or vertebral point tenderness. No Meningismus. Chest/axilla: Normal chest wall appearance and motion. Nontender with no deformity. No lesions are appreciated. Cardiovascular: Regular rate and rhythm with a normal S1 and S2. No gallops, murmurs, or rubs. Normal PMI, no JVD. No pulse deficits. Abdomen/GI: Soft, non-tender, with normal bowel sounds. No distension or tympany. No guarding or rebound. No evidence of tenderness throughout. Back: No spinal tenderness. No costovertebral tenderness. Full range of motion. Skin: Warm, dry with normal turgor. Normal color with no rashes, no lesions, and no evidence of cellulitis. MS/ Extremity: Pulses equal, no cyanosis. Neurovascular intact. Full, normal range of motion. Neuro: Awake and alert, GCS 15, oriented to person, place, time, and situation. Cranial nerves II-XII grossly intact. Motor strength 5/5 in all extremities. Sensory grossly intact. Cerebellar exam normal. Normal gait. Psych: Awake, alert, with orientation to person, place and time. Behavior, mood, and affect are within normal limits. 09:49 Cardiovascular: Rate: tachycardic, actual rate is 102 bpm, Rhythm: regular. 09:49 Respiratory: mild respiratory distress is noted, Respirations: normal, Breath sounds: + upper airway congestion. wheezing: is not appreciated. Vital Signs: 06:36 BP 155 / 105; Pulse 95; Resp 23; Temp 98.5; Pulse Ox 100% on R/A; Weight 90.72 kg; ha1 Height 5 ft. 7 in. ; 07:17 BP 161 / 102; Pulse 103; Resp 28; Pulse Ox 100% on R/A; ko1 07:46 BP 153 / 82; Pulse 106; Resp 20; Pulse Ox 100% on Nebulizer Mask; ko1 08:05 BP 135 / 78; Pulse 106; Resp 18; Pulse Ox 100% on R/A; ko1 08:27 BP 137 / 83; Pulse 102; Resp 18; Pulse Ox 98% on R/A; ko1 06:36 Body Mass Index 31.32 (90.72 kg, 170.18 cm) ha1 MDM: 08:51 Patient medically screened. kdr 09:49 Data reviewed: vital signs, nurses notes, lab test result(s), radiologic studies. ED kdr course: Patient felt much better after treatments were administered. The patient felt stable to go home. She was nontoxic-appearing during her stay in the ED. I reviewed all lab results with her and discharged her with a nebulizer and steroids. Patient was happy with the care provided the plan for discharge and follow-up. 12/05 07:18 Order name: CBC with Diff; Complete Time: 08:35 kdr 12/05 07:18 Order name: Chem 7; Complete Time: 08:35 kdr 12/05 07:23 Order name: COVID-19 SARS RT PCR; Complete Time: 08:49 kdr 12/05 07:23 Order name: Flu; Complete Time: 08:49 kdr 12/05 07:18 Order name: CXR XRAY; Complete Time: 08:35 kdr Administered Medications: 07:40 Drug: MethylPrednisoLONE IVP 125 mg Route: IVP; Site: right antecubital; ko1 08:02 Follow up: Response: No adverse reaction ko1 07:40 Drug: Levalbuterol Inhalation 1.25 mg Route: Inhalation; ko1 08:02 Follow up: Response: No adverse reaction; Marked relief of symptoms ko1 07:43 Drug: NS 0.9% IV 1000 ml Route: IV; Rate: 1 bolus; Site: right antecubital; ko1 Disposition Summary: 12/05/22 08:51 Discharge Ordered Location: Home kdr Problem: new kdr Symptoms: have improved kdr Condition: Stable kdr Diagnosis - Shortness of breath kdr - SARS-associated coronavirus as the cause of diseases classified elsewhere kdr Followup: kdr - With: Private Physician - When: 2 - 3 days - Reason: If symptoms return, Further diagnostic work-up, Recheck today's complaints, Continuance of care, Re-evaluation by your physician Discharge Instructions: - Discharge Summary Sheet kdr - Shortness of Breath, Adult, [id number] kdr - COVID-19 kdr Forms: - Medication Reconciliation Form kdr - Thank You Letter kdr - Patient Portal Instructions kdr Prescriptions: - albuterol sulfate 90 mcg/actuation Inhalation HFA Aerosol Inhaler - inhale 2 inhalation by INHALATION route every 4 hours administer via kdr ventilator; 2 Unspecified; Refills: 0, Product Selection Permitted - Medrol (Vinay) 4 mg Oral Tablets, Dose Pack - take 1 tablet by ORAL route as directed - follow package instructions; 1 kdr packet; Refills: 0, Product Selection Permitted Signatures: Dispatcher [employer] Perry Cooper MD MD kdr Ruby Gardner, RN RN ha1 Valencia Patel RN RN ko1
[2022-12-05 09:18] VITALS: TEMP 98.5
[2022-12-05 09:24] VITALS: BP 137/83; O2SAT 98
== END 2022-12-05 09:13 | disposition home or self-care (01) ==
LOC: ER 06:30
DX: U07.1 COVID-19 (principal)
CPT/HCPCS: 85025; 80048; 36415; 87635; 87804 ×2; 71045; 96374; 99285; J7614; J2930; J7030

== ENCOUNTER 2023-08-22 15:41 | Emergency (ER) | payer OTHER ==
--- OUTSIDE RECORDS SUMMARY | 2023-08-22 15:44 | XMS REPORT | Continuity of Care Document ---
Author Name Unknown Address [address] [facility]. [address] [place] [address] [facility] Address [address] [facility] [address] [place] [address] Care Team Providers Care Drag Out Man Name Role Phone PCP, PATIENT DOES NOT HAVE A Primary Care Physic stanislav Unavailable Ct Plascencia Attending Clinician Un available GC_GCBZW_Kadiyala_S Attending Clinician Unavaila ble RADIOLOGY Attending Clinician Unavailable Radiology Attending Clinician Unavailable Doctor Unassigned, [place] Attending Clinician U Olivier Lopez MD Attending Clinician [phone] OLIVIER MILLER Attending Clinician Unavail able OLIVIER MILLER Attending Clinician Unavail able Makenzie Douglas RN Attending Clinician Unavailable EDILSON CANNON Attending Clinician Unavailable Only, Ang Db Test Attending Clinician Unavailabl e Edilson Flores Attending Clinician [phone] [email or web address]_Kadiyala_S Admitting Clinician Unavaila DEB Almanzar Admitting Clinician Unavailable KAREN MA Admitting Clinician Unavailabl e Payers Payer Name Policy Type Policy Number Effective Date Expirati on Date Source JUAN [id number] 2005 00:00:00 [facility] [id number] 2005 00:00:00 Problems Condition Name Condition Details Condition Category Status Onset Date Resolution Date Last Treatment Date Treating Clinician Comments Source Acute urinary tract infection Acute Urinary Tract Infection Problem Active 2-20 00:00: 00 [facility] Dysuria Dysuria Problem Active 2022-05 0-17 00:00: 00 [facility] Vitamin D deficiency Vitamin D Deficiency Problem Active 1-12 00:00: 00 [facility] Inconclusi ve mammograph y finding Inconclusi ve Mammograph y Finding Problem Active 4-26 00:00: 00 [facility] Abnormal findings on diagnostic imaging of breast Abnormal Findings on Diagnostic Imaging of Breast Problem Active 4-26 00:00: 00 [facility] Non-scarri ng alopecia Non-scarri ng Alopecia Problem Active 2-21 00:00: 00 [facility] Endometrio sis of pelvic peritoneum Endometrio sis of Pelvic Peritoneum Problem Active 6-03 00:00: 00 [facility] Pelvic and perineal pain Pelvic and Perineal Pain Problem Active 3-11 00:00: 00 [facility] Gastroesop hageal reflux disease without esophagiti s Gastroesop hageal Reflux Disease without Esophagiti s Problem Active 2019-05 1-12 00:00: 00 [facility] Pain of breast Pain of Breast Problem Active 2019-05 1-12 00:00: 00 [facility] Contracept ion care education Contracept ion Care Education Problem Active 2-04 00:00: 00 [facility] Lump in lower outer quadrant of left breast Lump in Lower Outer Quadrant of Left Breast Problem Active 2-04 00:00: 00 [facility] Gynecologi lisseth examinatio n abnormal Gynecologi lisseth Examinatio n Abnormal Problem Active 2-04 00:00: 00 [facility] Vulvodynia Vulvodynia Problem Active 4- 00:00: 00 [facility] Female genital organ symptoms Female Genital Organ Symptoms Problem Active 08-19 00:00: 00 [facility] Increased frequency of urination Increased Frequency of Urination Problem Active 4 00:00: 00 [facility] No known active problems No known active problems Disease [facility] Allergies, Adverse Reactions, Alerts Allergy Name Allergy Type Status Severity Reaction(s) Onset Date Inactive Date Treating Clinician Comments Source No Known Allergie s DA Active U 3-17 00:00: 00 [facility] No Known Allergie s DA Active U 317 00:00: 00 [facility] NO KNOWN ALLERGIE S Drug Class Active [facility] Social History Social Habit Start Date Stop Date Quantity Comments Source [facility] Exposure to SARS-CoV-2 (event) 2022-02-07 00:00:00 2022 12:39:00 Not sure [facility] Sex Assigned At 1985 00:00:00 1985 00:00:00 [facility] Smoking Status Start Date Stop Date Source Tobacco smoking consumption unknown [facility] Never Smoker [facility] Medications Ordered Medication Name Filled Medication Name Start Date Stop Date Current Medication? Ordering Clinician Indication Dosage Frequency Signature (SIG) Comments Components Source One A Day Vitamin tablet 1 tablet every day by oral route. One A Day Vitamin tablet 1 tablet every day by oral route. 07-05 00:00: 00 No 1 Q1D One A Day Vitamin tablet 1 tablet every day by oral route. [facility] One A Day Vitamin tablet 1 tablet every day by oral route. One A Day Vitamin tablet 1 tablet every day by oral route. 15 00:00: 00 No 1 Q1D One A Day Vitamin tablet 1 tablet every day by oral route. [facility] DULOXETINE 30 mg capsule 11-06 00:00: 00 Yes 30mg TAKE 1 CAPSULE BY MOUTH IN THE MORNING AND 1 CAPSULE IN THE EVENING. [facility] DULoxetine 30 mg capsule 2021-0518 00:00: 00 11-06 00:00 :00 No 30mg Take 1 capsule by mouth in the morning and 1 capsule in the evening. [facility] DULoxetine 30 mg capsule 2021-05 00:00: 00 04-07 00:00 :00 No TAKE 1 CAPSULE BY MOUTH EVERY MORNING [facility] gabapentin 100 mg capsule 2021-05 0-13 00:00: 00 Yes 100mg Take 1 capsule by mouth in the morning and 1 capsule in the evening. [facility] DULoxetine (CYMBALTA) 30 mg capsule 2021-05- 00:00: 00 03-29 00:00 :00 No 30mg Take 1 capsule by mouth in the morning. [facility] gabapentin enacarbil (HORIZANT) 300 mg TbSR 9-30 00:00: 00 03-02 00:00 :00 No [id number] 300mg Take 300 mg by mouth daily. [facility] Bactrim DS 800 mg-160 mg tablet Take 1 tablet every 12 hours by oral route with meal(s) for 7 days. Bactrim DS 800 mg-160 mg tablet Take 1 tablet every 12 hours by oral route with meal(s) for 7 days. No 1 Q12H Bactrim DS 800 mg-160 mg tablet Take 1 tablet every 12 hours by oral route with meal(s) for 7 days. [facility] Ellura 200 mg (36 mg PAC) capsule Take 1 capsule every day by oral route as directed for 90 days. Ellura 200 mg (36 mg PAC) capsule Take 1 capsule every day by oral route as directed for 90 days. No 1capsul e(s) Q1D Ellura 200 mg (36 mg PAC) capsule Take 1 capsule every day by oral route as directed for 90 days. [facility] gabapentin 100 mg capsule Take 1 capsule as needed by oral route. gabapentin 100 mg capsule Take 1 capsule as needed by oral route. No 1capsul e(s) gabapentin 100 mg capsule Take 1 capsule as needed by oral route. [facility] trazodone 50 mg tablet TAKE 1 TABLET BY MOUTH EVERY DAY AT BEDTIME NEEDED trazodone 50 mg tablet TAKE 1 TABLET BY MOUTH EVERY DAY AT BEDTIME NEEDED No trazodone 50 mg tablet TAKE 1 TABLET BY MOUTH EVERY DAY AT BEDTIME NEEDED [facility] cholecalcif leonard (vitamin D3) 1,250 mcg (50,000 unit) capsule TAKE 1 CAPSULE BY MOUTH ONCE WEEKLY cholecalcif leonard (vitamin D3) 1,250 mcg (50,000 unit) capsule TAKE 1 CAPSULE BY MOUTH ONCE WEEKLY No cholecalci ferol (vitamin D3) 1,250 mcg (50,000 unit) capsule TAKE 1 CAPSULE BY MOUTH ONCE WEEKLY [facility] Cipro 500 mg tablet Take 1 tablet every 12 hours by oral route for 7 days. Cipro 500 mg tablet Take 1 tablet every 12 hours by oral route for 7 days. No 1 Q12H Cipro 500 mg tablet Take 1 tablet every 12 hours by oral route for 7 days. [facility] cranberry cranberry No cranberry [facility] phentermine phentermine No ph entermin e [facility] Probiotic Probiotic No Probiotic [facility] trazodone 50 mg tablet TAKE 1 TABLET BY MOUTH EVERY DAY AT BEDTIME NEEDED trazodone 50 mg tablet TAKE 1 TABLET BY MOUTH EVERY DAY AT BEDTIME NEEDED No trazodone 50 mg tablet TAKE 1 TABLET BY MOUTH EVERY DAY AT BEDTIME NEEDED [facility] Zepbound 2.5 mg/0.5 mL subcutaneou s pen injector Zepbound 2.5 mg/0.5 mL subcutaneou s pen injector No Zepbound 2.5 mg/0.5 mL subcutaneo us pen injector [facility] Vital Signs Vital Name Observation Time Observation Value Comments S ource Height 2023-08-01 00:00:00 67 [in_i] [facility] BMI (Body Mass Index) 2023-08-01 00:00:00 31.5 kg/m2 [facility] BP Systolic 2023-08-01 00:00:00 129 mm[Hg] [facility] BP Diastolic 2023-08-01 00:00:00 82 mm[Hg] [facility] Body Weight 2023-08-01 00:00:00 201.4 [lb_av] [facility] BMI (Body Mass Index) 2023-07-10 00:00:00 32.9 kg/m2 [facility] BP Diastolic 2023-07-10 00:00:00 86 mm[Hg] [facility] Height 2023-07-10 00:00:00 67 [in_i] [facility] Body Weight 2023-07-10 00:00:00 209.8 [lb_av] [facility] BP Systolic 2023-07-10 00:00:00 137 mm[Hg] [facility] Systolic blood pressure 2022 17:50:00 132 mm[Hg] [facility] Diastolic blood pressure 2022 17:50:00 87 mm[Hg] [facility] Heart rate 2022 17:50:00 89 /min [facility] Body height 2022 17:50:00 170.2 cm [facility] Body weight 2022 17:50:00 97.07 kg [facility] BMI 2022 17:50:00 33.52 kg/m2 [facility] Oxygen saturation in Arterial blood by Pulse oximetry 2022 17:50:00 94 /min [facility] Procedures Procedure Date / Time Performed Performing Clinician Source MAMMO, screening, digital, bilateral 2023-08-01 00:00:00 [facility] Hem[facility]rho[facility] 2023-01-19 00:00:00 [facility] ASSIGNMENT OF BENEFITS 2022-12-14 15:21:30 Docto r Unassigned, Marina Del Rey [facility] EXTERNAL PROVIDER RECORDS 2022-03-13 05:01:00 Do ctor Unassigned, Marina Del Rey [facility] REFERRAL- REQUEST/RESPONSE 2022-01-20 05:01:00 D octor Unassigned, Marina Del Rey [facility] BI ULTRASOUND BREAST COMPLETE LEFT 2021-11-09 16:55:53 Karen Ma [facility] Laparoscopy 2020-08-05 00:00:00 Samm [place] Breast Biopsy 2016-05-21 00:00:00 [facility] Delivery Only [facility] Plan of Care Planned Activity Planned Date Details Comments Source Diagnostic Test Pending 2023-08-01 00:00:00 pap, LB + HPV [code = pap, LB + HPV] [facility] Future Appointment 2024-08-07 09:45:00 Laura ohara, [address]; [address], [place] [address] [facility] Encounters Start Date/Time End Date/Time Encounter Type Admission Type Attending Clinicians Care Facility Care Department Encounter ID Source 2020-08-03 08:37:[address] Jensen [facility] [id number] [facility] 2023-09-03 00:00:00 2023-09-03 00:00:00 Outpatient R [facility] [id number] [facility] 2023-08-01 00:00:00 2023-08-01 00:00:00 Outpatient GC_GCBZW_Ka diyala_S PRIV PRIV [id number] [facility] 2023-08-01 00:00:00 2023-08-01 00:00:00 Laura Rashid PA: [address], [place] [address] , Ph. Formerly [facility] - GC_GCBZW_Stormy hernandez Miguel* [id number] [facility] 2023-07-24 00:00:00 2023-07-24 00:00:00 Outpatient GC_GCBZW_Ka diyala_S PRIV PRIV [id number] [facility] 2023-07-24 00:00:00 2023-07-24 00:00:00 OLIVE FierroP: [address], [place] [address] , Ph. [facility] - GC_GCBZW_Stormy Rivera* [id number] [facility] 2023-07-22 00:00:00 2023-07-22 00:00:00 Outpatient GC_GCBZW_Ka diyala_S PRIV PRIV [id number] [facility] 2023-07-17 00:00:00 2023-07-17 00:00:00 Outpatient GC_GCBZW_Ka diyala_S PRIV PRIV [id number] [facility] 2023-07-16 00:00:00 2023-07-16 00:00:00 Outpatient GC_GCBZW_Ka diyala_S PRIV PRIV [id number] [facility] 2023-07-10 00:00:00 2023-07-10 00:00:00 Deb Stover, NURSE CHARGE RN: [address], [place] [address] , Ph. [facility] - GC_GCBZW_Stormy hernandez Miguel* [id number] [facility] 2023-07-09 00:00:00 2023-07-09 00:00:00 Outpatient GC_GCBZW_Ka diyala_S PRIV PRIV [id number] [facility] 2023-06-28 00:00:00 2023-06-28 00:00:00 Didi Lea, NURSE CHARGE RN: [address], [place] [address] , Ph. [facility] - GC_GCBZW_La mary Rivera* [id number] [facility] 2023-03-22 00:00:00 2023-03-22 00:00:00 Outpatient GC_GCBZW_Ka diyala_S PRIV PRIV [id number] [facility] 2023-03-06 00:00:00 2023-03-06 00:00:00 Outpatient GC_GCBZW_Ka diyala_S PRIV PRIV [id number] [facility] 2023-03-05 00:00:00 2023-03-05 00:00:00 Outpatient GC_GCBZW_Ka diyala_S PRIV PRIV [id number] [facility] 2022-12-14 10:23:05 2022-12-14 23:59:00 Outpatient R RADIOLOGY [facility] [id number] [facility] 2022-12-14 10:23:05 2022-12-14 23:59:00 Outpatient R RADIOLOGY [facility] [id number] [facility] 2022-12-14 10:20:00 2022-12-14 23:59:00 Hospital Encounter Radiology [facility] 1.2.840.114 350.1.13.10 4.2.7.2.686 [id number] [facility] 2022-12-14 00:00:00 2022-12-14 00:00:00 Orders Only Doctor Unassigned, Marina [place] Rey [facility] 1.2840.114 350.1.13.10 4.2.7.2.686 [id number] [facility] 2022-11-23 00:00:00 2022-11-23 00:00:00 Outpatient R RADIOLOGY [facility] [id number] [facility] 2022-10-27 00:00:00 2022-10-27 00:00:00 Refill AngelaOlivier [facility] 1..840.114 350.1.13.10 4.2.7.2.686 [id number] [facility] 2022-04-07 00:00:00 2022-04-07 00:00:00 Telephone Angela Olivier Gabriel [facility] EST[facility]AN?[facility] 1.2.840.114 350.1.13.10 4.2.7.2.686 [id number] [facility] 2022-03-28 00:00:00 2022-03-28 00:00:[address] [facility] ESTEVAN?[facility] 1..840.114 350.1.13.10 4.2.7.2.686 [id number] [facility] 2022-03-13 00:00:00 2022-03-13 00:00:00 Orders Only Doctor Unassigned, [place] [facility] 1.2840.114 350.1.13.10 4.2.7.2.686 [id number] [facility] 2022-03-02 00:00:00 2022-03-02 00:00:00 Telephone Angela[facility] 1.2.840.114 350.1.13.10 4.2.7.2.686 [id number] [facility] 2022-02-25 00:00:00 2022-02-25 00:00:00 Refill Angela Olivier Gabriel [facility] TONJA BARRETO?[facility] 1.2.840.114 350.1.13.10 4.2.7.2.686 [id number] [facility] 2022-02-23 00:00:00 2022-02-23 00:00:00 Patient Secure Msg Doctor Unassigned, Marina [place] Rey [facility] TONJA BARRETO?[facility] 1..840.114 350.1.13.10 4.2.7.2.686 [id number] [facility] 2022-02-22 00:00:00 2022-02-22 00:00:00 [facility] 1..840.114 350.1.13.10 4.2.7.2.686 [id number] [facility] 2022-02-22 00:00:00 2022-02-22 00:00:00 [facility] 1.2.840.114 350.1.13.10 4.2.7.2.686 [id number] [facility] 2022 13:00:00 2022 13:37:43 Outpatient R OLIVIER MILLER HOWARD [facility] [id number] [facility] 2022 13:00:00 2022 13:37:43 Office [facility] 1.2.840.114 350.1.13.10 4.2.7.2.686 [id number] [facility] 2022-01-20 00:00:00 2022-01-20 00:00:00 Orders Only Doctor Unassigned, [place] [facility] 1.2.840.114 350.1.13.10 4.2.7.2.686 [id number] [facility] 2021-11-09 10:44:35 2021-11-09 23:59:00 Hospital Encounter Radiology [facility] 1.2.840.114 350.1.13.10 4.2.7.2.686 [id number] [facility] 2021-11-09 10:43:54 2021-11-09 10:43:54 Hospital Encounter Radiology [facility] 1.2.840.114 350.1.13.10 4.2.7.2.686 [id number] [facility] 2021-11-09 00:00:00 2021-11-09 10:43:54 Outpatient R RADIOLOGY [facility] [id number] [facility] 2021-11-07 00:00:00 2021-11-07 00:00:00 Patient Secure Msg Doctor Unassigned, [place] [facility] 1.2.840.114 350.1.13.10 4.2.7.2.686 [id number] [facility] 2021-08-25 14:16:26 2021-08-25 23:59:00 Outpatient R RADIOLOGY [facility] [id number] [facility] 2021-08-25 14:16:26 2021-08-25 23:59:00 Hospital Encounter Radiology [facility] 1.2.840.114 350.1.13.10 4.2.7.2.686 [id number] [facility] 2021-08-25 14:09:16 2021-08-25 14:09:00 Emergency [facility] [id number] [facility] 2021-06-24 00:00:00 2021-06-24 00:00:00 Telephone Makenzie Douglas [facility] 1..840.114 350.1.13.10 4.2.7.2.686 [id number] [facility] 2021-06-23 14:00:00 2021-06-23 14:06:23 Outpatient Javon [facility] [id number] [facility] 2021-06-23 14:00:00 2021-06-23 14:06:23 Laboratory Only Only, Khadar Aguilar [facility] ESTEVAN?[facility] 1..840.114 350.1.13.10 4.2.7.2.686 [id number] [facility] 2021-06-23 14:00:00 2021-06-23 14:00:00 Outpatient Javon [facility] [id number] [facility] 2021-06-23 00:00:00 2021-06-23 00:00:00 Orders Only Doctor Unassigned, [place] Rey [facility] 1.2.840.114 350.1.13.10 4.2.7.2.686 [id number] [facility] Results Test Description Test Time Test Comments Results Result Co mments Source [facility] Medical[facility] macro (dipstick) panel - [id number] 09:03:05* Test Item Value Reference Range Interpretation Comme nts Leukocytes (test code = Leukocytes) Negative Nitrite (test code = Nitrite) negative Urobilinogen (test code = Urobilinogen) Normal Protein (test code = Protein) Negative pH (test code = pH) 6.0 Blood (test code = Blood) Non-Hemolyzed: Trace Specific Miracle (test code = Specific Miracle) 1.025 Ketone (test code = Ketone) Negative Bilirubin (test code = Bilirubin) Negative Glucose (test code = Glucose) Negative Appearance (test code = Appearance) Slightly Cloudy Color (test code = Color) Yellow [facility] Medicalinfectious disease [id number] 10:04:00Abnormal Status[facility] MedicalBacteria identified in Urine by [id number] 00:00:00* Test Item Value Reference Range Interpretation Comme nts culture, urine (test code = culture, urine) see below no growth A [facility] MedicalUrinal[facility] complete W Reflex Culture panel - [id number] 00:00:00* Test Item Value Reference Range Interpretation Comme nts bacteria, urine (test code = bacteria, urine) none none-few blood, urine (test code = bl ood, urine) trace negative A bilirubin, urine (test code = bilirubin, urine) negative negative cast, granular, ur (test cod e = cast, granular, ur) not present not present cast, hyaline, urine (test c ode = cast, hyaline, urine) not present not present cast, RBC, urine (test code = cast, RBC, urine) not present not present character (test code = character) cloudy clear A color (test code = color) yellow yellow crystals urine (test code = crystals urine) none none epithelial cells, ur (test c ode = epithelial cells, ur) none none-few glucose, urine (test code = glucose, urine) negative negative ketone, urine (test code = ketone, urine) negative negative leukocyte esterase (test cod e = leukocyte esterase) large negative A nitrites urine (test code = nitrites urine) positive negative A pH urine (test code = pH urine) 6.5 5.0-8.0 protein, urine (test code = protein, urine) 1+,30 mg/dL negative A RBC, urine (test code = RBC, urine) 3-5 0-2 H specific gravity ur (test co de = specific gravity ur) 1.014 1.003-1.030 urobilinogen urine (test cod e = urobilinogen urine) 0.2 mg/dL 0.2-1.0 WBC, urine (test code = WBC, urine) >100 0-5 H [facility] Medical[facility] macro (dipstick) panel - [id number] 10:28:30* Test Item Value Reference Range Interpretation Comme nts Leukocytes (test code = Leukocytes) 1+ Nitrite (test code = Nitrite) positive Urobilinogen (test code = Urobilinogen) Normal Protein (test code = Protein) Negative pH (test code = pH) 6.0 Blood (test code = Blood) Non-Hemolyzed: Moderate Specific Miracle (test code = Specific Miracle) 1.015 Ketone (test code = Ketone) Negative Bilirubin (test code = Bilirubin) Negative Glucose (test code = Glucose) Normal Appearance (test code = Appearance) Clear Color (test code = Color) Suzette Quijano [id number] 16:13:00* Test Item Value Reference Range Interpretation Comme nts SURG (test code = SURG) -----RUN DATE: 08/06/20 [facility] PAGE 1 RUN TIME: 1613 Specimen Inquiry RUN USER: INTERFACE -----PATIENT: DEVIN GALLOWAY LOC: [facility] U #: [id number] AGE/SX: 35/F ROOM: RE08/05/20REG DR: Ct Plascencia : 85 BED: DIS: STATUS: DEP [facility] TLOC: ----- SPEC #: [id number] RECD: 08/05/20 STATUS: DEBORAH VANEGAS #: [id number] DESTINY: 08/05/20-[address]: Ct Plascencia MD ENTERED: 08/05/20 SP TYPE: SURG OTHR DR: No Primary or Family PhysicianORDERED: SURG PATH LVL 2, SURG PATH LVL 4/ COPIES TO: No Primary or Family Physician Ct Plascencia MD [address] [place] [address] HISTOLOGY: TISSUE ID BLK PCS YAYO LEV PROCEDURE DISPOSITION ____ ___ ___ ___ FALLOPIAN TUBE, A FALLOPIAN TUBE, B FALLOPIAN TUBE, C PROCEDURES: SURG PATH LVL 2 (08/06/20) SURG PATH LVL 4 (08/05/20) TISSUES: A. FALLOPIAN TUBE, NOS - BILATERALFALLOPIAN TUBES B. FALLOPIAN TUBE, NOS - LEFT IMPLANT ENDOMETRIOSIS C. FALLOPIAN TUBE, NOS - RIGHT IMPLANT NODULE CLINICAL HISTORY CONTRACEPTION - Z30.09; ABNORMAL FINDING/ENGAGEMENT LEAD - Z01.411 CPT CODES CPT CODE(S): 43594q7 , 64770 , , , , , FINAL DIAGNOSIS A. Fallopian tubes, bilateral, salpingectomy: BILATERAL COMPLETE CROSS-SECTIONS OF UNREMARKABLE FALLOPIAN TUBE PARATUBAL CYSTS B. Soft tissue, left IP, biopsy: SOFT TISSUE WITH FOCAL HEMORRHAGE CONTINUED ON NEXT PAGE -----RUN DATE: 08/06/20 [facility] PAGE 2 RUN TIME: 1613 Specimen Inquiry RUN USER: INTERFACE -----SPEC #: [facility]:[id number] PATIENT: DEVIN GALLOWAY #[id number] (Continued) FINAL DIAGNOSIS (Continued) C. Soft tissue, right IP, biopsy: SOFT TISSUE WITH HEMORRHAGIC CYST GROSS DESCRIPTION A. Bilateral fallopian tubes. Received in formalin is a fallopian tube that is purple-woods with a fimbriated end that measures 6.5 x 0.7 x 0.4 cm. Sections through this tube do not reveal any obvious masses or lesions. There are three separate fragments of tube in the container. The first fragment has a fimbriated end and is light purple and measures 2.5 x 0.5 x 0.5 cm. Sections through this fragment do not reveal any masses or lesions. The second fragment is a portion of tube with no fimbria that measures 3.1 x 0.5 x 0.5 cm. Sections through this tissue do not reveal any masses or lesions. The third fragment is a portion of soft tissue, measuring 1.3 x 0.9 x 0.9 cm. Sections through this segment reveals a cyst filled with thin clear fluid. Computer Meteorologist sections are submitted as follows: A1 sections through first described fallopian tube; A2 - entire second segment of tube with attached fimbria; A3 - quality control representative sections through tube with no fimbria; A4 - cystic nodule, bisected. B. Left IP endometriosis. Received in formalin is a single fragment of soft red-woods tissue, measuring 0.3 x 0.2 x 0.1 cm. The entire specimen is submitted as B. C. Right IP nodule. Received in formalin is a segment of dark purple-woods tissue, measuring 0.8 x 0.7 x 0.7 cm. The tissue is trisected to reveal a cystic area filled with dark red blood. The entire specimen is submitted as C. bk/nr Grossing performed at [facility], [address] [place] [address], [address], [place] [address]. Laundry Press Operator: Abelardo James M.D. MICROSCOPIC DESCRIPTION A. Bilateral fallopian tubes. Sections demonstrate complete cross-sections of bilateral fallopian tubes. Portions of fimbriated end are also identified. Paratubal cysts are seen. No malignant features are identified. B. Left IP endometriosis. Sections demonstrate a portion of soft tissue. Focal hemorrhage is identified. No definite endometriosis is seen. C. Right IP nodule. Sections demonstrate a portion of soft tissue. A hemorrhagic cystic structure is identified. No evidence of endometriosis is seen. No malignancy is identified. CONTINUED ON NEXT PAGE -----RUN DATE: 08/06/20 [facility] PAGE 3 RUN TIME: 1613 Specimen Inquiry RUN USER: INTERFACE -----SPEC #: [facility]:[id number] PATIENT: DEVIN GALLOWAY #[id number] (Continued) ----- Signed SIGNATURE ON Luigi Knight 08/06/20 1613 ----- END OF REPORT COVID 19 INHOUSE [id number] 11:44:00* Test Item Value Reference Range Interpretation Comme nts COVID 19 INHOUSE AG (test code = [id number]) NEGATIVE Negative Per supervisor pumping station , negative results should be treated aspresumptive and, if inconsistent with clinical signs andsymptoms or necessary for patient management, should betested with an alternative molecular assay. Negative resultsdo not preclude SARS-CoV-2 infection and should not be usedas the sole basis for patient management decisions. Negative results should be considered in the context of apatient's recent exposures, history, presence of clinicalsigns and symptoms consistent with COVID-19. CBC W/AUTO [id number] 11:24:00* Test Item Value Reference Range Interpretation Comme nts WHITE BLOOD CELL (test code = WBC) 6.7 K/mm3 3.5-11.0 N RED BLOOD CELL (test code = RBC) 4.21 M/mm3 4.70-6.10 L HEMOGLOBIN (test code = HGB) 13.1 G/DL 10.4-14.9 N HEMATOCRIT (test code = HCT) 39.0 % 31.5-44.1 N MEAN CELL VOLUME (test code = MCV) 92.6 Fl 84.5-98.6 N MEAN CELL HGB (test code = MCH) 31.1 pg 27.0-34.2 N MEAN CELL HGB CONCETRATION (test code = MCHC) 33.6 G/DL 31.5-34.0 N RED CELL DISTRIBUTION WIDTH (test code = RDW) 11.6 SD 11.5-14.5 N PLATELET COUNT (test code = PLT) 232 K/mm3 150-450 N MEAN PLATELET VOLUME (test c ode = MPV) 11.40 fL 7.0-10.5 H NEUTROPHIL % (test code = NT%) 67.1 % 40-76 N IMMATURE GRANULOCYTE % (test code = IG%) 0.1 % 0.0-5.0 N LYMPHOCYTE % (test code = LY%) 26.4 % 20.5-51.1 N MONOCYTE % (test code = MO%) 5.0 % 1.7-9.3 N EOSINOPHIL % (test code = EO%) 1.0 % 0.0-6.0 N BASOPHIL % (test code = BA%) 0.4 % 0.0-2.0 N NUCLEATED RBC % (test code = NRBC%) 0.0 /100WBC% 0.0-1.0 N NEUTROPHIL # (test code = NT#) 4.5 K/mm3 1.8-7.6 N IMMATURE GRANULOCYTE # (test code = IG#) 0.01 x10 3/uL 0.00-0.03 N LYMPHOCYTE # (test code = LY#) 1.8 K/mm3 0.6-3.2 N MONOCYTE # (test code = MO#) 0.3 K/mm3 0.3-1.1 N EOSINOPHIL # (test code = EO#) 0.1 K/mm3 0.0-0.4 N BASOPHIL # (test code = BA#) 0.0 K/mm3 0.0-0.1 N NUCLEATED RBC # (test code = NRBC#) 0.0 K/mm3 0.0-0.1 N MANUAL DIFF REQUIRED (test c ode = MDIFF) NO DIFF/SCN CRITERIA URINALYSIS [id number] 11:20:00* Test Item Value Reference Range Interpretation Comme nts UA GLUCOSE DIPSTICK (test code = DGLUU) NEGATIVE mg/dL NEG UA BILIRUBIN DIPSTICK (test code = BILU) NEGATIVE mg/dL NEG UA KETONE DIPSTICK (test code = KETU) NEGATIVE mg/dL NEG UA SPECIFIC GRAVITY (test code = SGU) 1.025 SG 1.005-1.030 UA BLOOD DIPSTICK (test code = SULAIMAN) 1+ mg/DL NEG A UA PH DIPSTICK (test code = NASIMA) 5.5 pH UNITS 5.0-7.0 UA PROTEIN DIPSTICK (test code = PROU) NEGATIVE mg/dL NEG UA UROBILINIOGEN DIPSTICK (test code = URO) 0.2 mg/dL <2.0 UA NITRITE DIPSTICK (test code = LACI) NEGATIVE SCREEN NEG UA LEUKOCYTE ESTERASE DIPSTICK (test code = LEUU) NEGATIVE Leuk/mcL NEGATIVE Urine Specimen Type: Clean CatchUR HCG [id number] 11:20:00* Test Item Value Reference Range Interpretation Comme nts UR HCG QUAL (test code = HCGQLU) NEGATIVE Urine Specimen Type: Clean CatchURINALYSIS [id number] 11:20:00* Test Item Value Reference Range Interpretation Comme nts UA GLUCOSE DIPSTICK (test code = DGLUU) NEGATIVE mg/dL NEG UA BILIRUBIN DIPSTICK (test code = BILU) NEGATIVE mg/dL NEG UA KETONE DIPSTICK (test code = KETU) NEGATIVE mg/dL NEG UA SPECIFIC GRAVITY (test code = SGU) 1.025 SG 1.005-1.030 UA BLOOD DIPSTICK (test code = SULAIMAN) 1+ mg/DL NEG A UA PH DIPSTICK (test code = NASIMA) 5.5 pH UNITS 5.0-7.0 UA PROTEIN DIPSTICK (test code = PROU) NEGATIVE mg/dL NEG UA UROBILINIOGEN DIPSTICK (test code = URO) 0.2 mg/dL <2.0 UA NITRITE DIPSTICK (test code = LACI) NEGATIVE SCREEN NEG UA LEUKOCYTE ESTERASE DIPSTICK (test code = LEUU) NEGATIVE Leuk/mcL NEGATIVE Urine Specimen Type: Clean CatchUR HCG [id number] 11:20:00* Test Item Value Reference Range Interpretation Comme nts UR HCG QUAL (test code = HCGQLU) NEGATIVE NEGATIVE Urine Specimen Type: Clean Catch Notes Date/Time Note Provider Source 2020-08-05 09:47:00 [id number] [address] PATIENT NAME: DEVIN GALLOWAY ADMIT DATE: 08/05/20ACCOUNT NO: [id number] ROOM NO: AGE: 35 REPORT TYPE: OPERATIVE REPORT SEX: F ADMITTING PHYSICIAN: ATTENDING PHYSICIAN: Ct Plascencia MD OPERATION DATE: 08/05/2020 PREOPERATIVE DIAGNOSES:1. Pelvic pain.2. Desired permanent sterilization. POSTOPERATIVE DIAGNOSES:1. Pelvic pain.2. Desired permanent sterilization.3. Endometriosis. PROCEDURES: Diagnostic laparoscopy; lysis of sigmoid adhesions from theposterior wall of the uterus, left sidewall, and uterosacral; endometriosisfulguration and excision; and bilateral salpingectomy. SURGEON: Ct Plascencia MD ANESTHESIA: General endotracheal. DESIGNER/WRITER: Gemma Conrad. ESTIMATED BLOOD LOSS: Minimal. SPECIMENS: Bilateral tubes. Endometriosis from the left IP fulgurated and thenthe remaining excised and on the right side completely excised. COMPLICATIONS: No complications. DRAINS: No drains. CONDITION: The patient's condition is stable. INDICATIONS: The patient is a 35-year-old done with childbearing, on oralcontraceptive pills. Her pelvic pain unresolved. Consented for bilateral tuballigation or salpingectomy, diagnostic laparoscopy, endometriosis excision ifpresent. She was also explained that she could have bilateral salpingectomy ifthe tube appeared to have pathology other endometriosis or scar tissue or hydroor hematosalpinx. PROCEDURE IN DETAIL: After informed consent was verified, she was taken back tothe OR. No antibiotics indicated for this procedure per ACOG guidelines. PATIENT NAME: DEVIN GALLOWAY The patient was in supine fashion on the operating table. Timeout was done. General anesthesia was given. She was placed in dorsal lithotomy position. Arms tucked by the side. After positioning was checked, abdomen, vulva, vagina,and perineum prepped and draped in sterile fashion. Mohamud placed to drain thebladder. Diagnostic VCare introduced into the uterus and fixed in place. Thisarea was draped. A 1-cm infraumbilical incision was made with a scalpel using open laparoscopytechnique. Fascia was incised, tagged with 0 Vicryl sutures. Peritoneumentered sharply. S retractors placed. Gia introduced. Site of entrychecked, unremarkable. Five suprapubic and left lower quadrant ports wereplaced under direct vision after identifying the site of entry, all 3 sites werepreinjected with 0.25% Marcaine even before incisions were placed at the skin onall 3 and skin and fascia on both 5 ports. After the patient was placed in [place], close examination was performed on allthe peritoneal surfaces, upper abdominal cavity, and appendix, all appeared charlene completely unremarkable. There were 2 implants of endometriosis, one on theleft IP that appeared to be slightly more flatter very close to the ovarianartery and then the one on the right side appeared to be a little bit moreindependent and in the lateral broad ligament. The tube on the left side appeared to be slightly more prominent and dilated;however, no gross appearance of hydrosalpinges. The mesosalpinx appeared tohave lesion suspicious for endometriosis, so decision was made to remove thetubes. ____ scar tissue posteriorly sigmoid adhesions were seen to the posterioruterine wall, distal uterosacral ligament, and the left lower quadrant to thesidewall. The left lower quadrant adhesions had to be taken down in order forme to visualize and operate on the left IP properly, so these were taken downwith the help of sharp dissection and cutting with scissors as well as with theLigaSure. Once all this was dropped down, then the left mesosalpinx was pickedup from the distal and then excised. The tube was removed intact. The sigmoidadhesions from the posterior aspect were then taken down with sharp dissectionas well as with the LigaSure. Once all this was done and we exposed the entirepelvic cavity, pelvic peritoneum was inspected closely and there was no evidenceof any endometriosis seen in this area. No anatomical distortion of theureteric courses. Then, on the right side, opened up the IP ligament inparallel to the uteroovarian vessels. Once this was done and exposed, theendometriotic implant appeared to be distinct from the vessel complex and thiswas excised. This was pulled out through the suprapubic incision at thesuprapubic trocar. Then, on the left side IP, the peritoneum over the IP wasopened up and then the endometriosis was picked up with the help of the [place] grasper and then on attempt to excise it at the base, it was fulguratedwith the LigaSure and whatever was left behind the remnant was removed andhanded out as a specimen. The tube on the right side was then taken down and pulled out, it was dilated insome places with the paratubal cyst, so it was severed and removed in 3 piecesbut all 3 pieces were put together and all specimens were labeled appropriately. Thorough irrigation and suction was performed. Excellent hemostasis wassecured and ensured that all the trocars were removed under direct vision,injected at the fascial site and the skin with the help of the 0.25% Marcaine PATIENT NAME: DEVIN GALLOWAY and gas was desufflated. Gia was removed. Fascia was injected with Marcaineas well as the skin. Then the fascia closed with the help of the tagged 0Vicryl sutures tied to each other. All skin incisions closed with the help of4-0 Vicryl and Steri-Strips placed. VCare and Mohamud were removed. Instrumentand sponge counts were correct at the end of the case. The patient toleratedthe procedure well. EBL was minimal. Dictated By: Ct Plascencia MD WT: OP:LLEROY/FRANCIE/TANYADD: 08/05/2020 09:47:29DT: 08/05/2020 10:45:15Conf#: [id number]/DID#: [id number] Authenticated by Ct Plascencia MD On 08/19/2020 05:13:07 PM at 1713 PATIENT NAME: DEVIN GALLOWAY [id number]:45:00L.[id number] lable for patient [id number]:13:29 [facility] 2020-08-05 08:08:00 [id number]/skx [id number]:0 8:00 [facility] CenterBrief Op NoteREPORT#:[id number] REPORT STATUS: SignedDATE:08/05/20 TIME:0808 PATIENT: DEVIN GALLOWAY UNIT #: [id number]#: [id number] ROOM/BED:: 85 AGE: 35 SEX: F ATTEND: Ct Plascencia [facility] AUTHOR: Ct Plascencia MD * ALL edits or amendments must be made on the electronic/computer document * Op/Inv Proc Note - BriefPre-procedure diagnosis:Pelvic pain, desired permanent sterilizationPost-procedure diagnosis: same as pre procedure dx, Endometriosis, sigmoid adhesionsProcedures performed:Laparoscopy bilateral tubal ligation, endometriosis excision, lysis of sigmoid adhesionsPrimary Surgeon:[employer] Kennel Supervisor(s): nita conrad FAAnesthesia: general anesthesiaFindings:sigmoid adhesions to post uterine wall, left USL and to LLQ side wall, endometriosis implants on left IP smaller than on the right, right excised, leftfulgrated adn whatever was remaining was removed, left tube slightly more prominent , right mesosalpinx with areas suspicious for endometriosis, so, tubeswere removedComplications: noneEstimated blood loss in ml's: noneSpecimens removed/altered: bilateral tubes, endo implants on right >left IP ligamentApproach: laparoscopicWound class: cleanDisposition: stable at 0939 RPT #: [id number] OF REPORT OPOperative [id number]:08:00L.[id number] deable for patient [id number]:39:46 [facility]
[2023-08-22] MEDS ORDERED: ONDANSETRON 4 MG/2 ML VIAL ONE (16:22)
[2023-08-22] MEDS ORDERED: MORPHINE 4 MG/ML SYR ONE (16:22)
[2023-08-22] MEDS ORDERED: NA CHLORIDE 0.9% 1,000 ML ONE (16:23)
[2023-08-22 16:26] LABS: Hematocrit 38.6 % (36.0-45.0); Hemoglobin 13.1 g/dL (12.0-15.0); MCH 30.1 pg (27.0-35.0); MCHC 33.9 g/dL (32.0-36.0); MCV 88.6 fL (80-100); Platelets 269 thou/uL (152-406); RBC Red Blood Cell Count 4.36 M/uL (3.86-4.86)
[2023-08-22 16:27] LABS: Absolute Basophils 0.1 K/uL (0-0.5); Absolute Eosinophils 0.1 K/uL (0-0.5); Absolute Lymphocytes (CBC) 2.5 K/uL (0.7-4.9); Absolute Monocytes 0.6 K/uL (0.1-1.3); Basophils % 0.7 % (0-1.3); Eosinophils % 0.6 % (0-4.4); Lymphocytes % 24.6 % (15.3-44.8); MPV 10.3 fL (7.6-11.3); Monocytes % 5.4 % (3.3-12.3); Neutrophils % 68.7 % (41.7-73.7); Red Cell Distribution Width 13.2 % (12.1-15.2)
[2023-08-22 16:31] LABS: PTT, Activated Partial Thromb 31.2 SECONDS (24.3-36.9); Protime INR 1.19
[2023-08-22 16:42] LABS: Albumin 3.9 g/dL (3.4-5.0); Albumin/Globulin Ratio 1.1 (1.1-1.8); Anion Gap 10.6 mEq/L (5.0-15.0); Bilirubin Total 0.7 mg/dL (0.2-1.0); Globulin 3.7 g/dL (2.3-3.5); Potassium 3.6 mEq/L (3.5-5.1); Protein, Total 7.6 g/dL (6.4-8.2)
--- NOTE | 2023-08-22 17:12 | RAD REPORT ---
EXAM DESCRIPTION: CT - Abdomen Pelvis W Contrast - 08/22/2023 4:34 pm CLINICAL HISTORY: ABD PAIN COMPARISON: No comparisons TECHNIQUE: Thin cut axial CT imaging of the abdomen and pelvis was performed following intravenous a dministration of 100 mL Isovue 300. Multiplanar reformats were generated and reviewed. All CT scans are performed using dose optimization technique as appropriate and may include automated exposure control or mA/KV adjustment according to patient size. FINDINGS: No suspicious findings in the lung bases. The liver, spleen, adrenal glands, and pancreas show no suspicious findings. Gallbladder and biliary tree are also without suspicious finding. Symmetric renal function is seen with no hydronephrosis or suspicious renal mass. Left renal pelvis 6 mm calculus. Right parapelvic 5 mm calculus near the upper pole. Fluid density right midpole 1.5 cm cyst. No dilated bowel loops or bowel wall thickening. No free air, free fluid or inflammatory stranding. N o hernia, mass or bulky lymphadenopathy. The urinary bladder is suboptimally distended limiting evalu ation. No suspicious bony findings. IMPRESSION: Bilateral nonobstructing renal calculi as above. No other acute intra-abdominal process.
--- NOTE | 2023-08-22 18:45 | RAD REPORT ---
EXAM DESCRIPTION: US - Transvaginal Study Probe - 08/22/2023 6:05 pm CLINICAL HISTORY: ABD PAIN COMPARISON: TRANSVAGINAL STUDY PROBE dated 08/20/2014 TECHNIQUE: Sonographic grayscale and color flow images of the pelvis were obtained. FINDINGS: Prominently distended bladder limits evaluation. The uterus is normal in size, shape and echotexture. The uterus measures 10.8 cm in length. Few nabot hian cysts present the cervix. The endometrial stripe measures 7 mm, normal. Both ovaries are normal in size, shape and echotexture. The right ovary was not visualized. The left ovary measures 3.7 x 2.8 x 2.3 cm, containing numerous cysts/follicles, largest measuring 1.9 cm. No suspicious adnexal masses or cysts. Normal Doppler blood flow was demonstrated to the left ovary. No significant pelvic ascites. IMPRESSION: No abnormalities of the uterus or left ovary. Right ovary was not visualized, limiting evaluation.
[2023-08-22 19:53] LABS: Specific Gravity > 1.030 (1.005-1.030); Sqamous Epithelial None Seen /HPF (None Seen); Urine Bacteria <20 /HPF (<20); Urine Bilirubin NEGATIVE (Negative); Urine Blood Trace (Negative); Urine Clarity Clear (Clear); Urine Color Light-Yellow (Yellow); Urine Culture Reflex Order NOT NEEDED; Urine Glucose NEGATIVE (Negative); Urine Ketones TRACE (Negative); Urine Microscopic Reflex YN ORDER UMIC; Urine Mucus Slight /HPF (None Seen); Urine Nitrite NEGATIVE (Negative); Urine Protein NEGATIVE (Negative); Urine Urobilinogen Normal (Normal); Urine WBC <5 /HPF (<5)
--- NOTE | 2023-08-22 20:01 | EDPHYS ---
[facility] Name: Jolene Buchanan Age: 38 yrs Sex: Female : 1985 Arrival Date: 08/22/2023 Time: 15:41 Bed 2 Private MD: ED Physician Nabeel Chaudhari HPI: 08/21 15:57 This 38 yrs old Female presents to ER via Wheelchair with complaints of kb Abdominal Pain. 15:57 Pt is a 38 year old female who presents with severe left lower quadrant pain that kb started today. Denies n/v/d/fever. States she has had constipation. . Historical: - Allergies: 15:48 No Known Allergies; mb9 - PMHx: 15:48 Asthma; mb9 - PSHx: 15:48 hernia; section; mb9 15:56 bilateral salpingectomy; kb - Immunization history:: Adult Immunizations up to date. - Infectious Disease History:: Denies. - Social history:: Smoking status: Patient denies any tobacco usage or history of. ROS: 15:58 Constitutional: As per HPI kb Exam: 15:58 Constitutional: This is a well developed, well nourished patient who is awake, alert, kb and in no acute distress. Head/Face: Normocephalic, atraumatic. ENT: Moist Mucous membranes Cardiovascular: Regular rate Respiratory: Respirations even and unlabored. No increased work of breathing. Talking in full sentences Skin: Warm, dry with normal turgor. Normal color. MS/ Extremity: Pulses equal, no cyanosis. Neurovascular intact. Full, normal range of motion. Neuro: Awake and alert, GCS 15, oriented to person, place, time, and situation. Moves all extremities. Normal gait. 15:58 Abdomen/GI: Inspection: abdomen appears normal, Bowel sounds: normal, Palpation: soft, in all quadrants, moderate abdominal tenderness, in the left lower quadrant, Vital Signs: 15:46 BP 142 / 94; Pulse 140; Resp 22; Temp 98.8; Pulse Ox 100% on R/A; Weight 79.38 kg; mb9 Height 5 ft. 7 in. ; Pain 10/10; 16:32 BP 139 / 114; Pulse 113; Resp 21; Pulse Ox 100% on R/A; Pain 9/10; mg7 17:00 BP 132 / 89; Pulse 97; Resp 16; Pulse Ox 99% on R/A; mg7 17:12 BP 132 / 89; Pulse 101; Resp 16; Pulse Ox 100% on R/A; Pain 6/10; mg7 18:30 BP 140 / 93; Pulse 88; Resp 18; Pulse Ox 100% on R/A; mg7 19:30 BP 126 / 85; Pulse 102; Resp 18; Pulse Ox 100% on R/A; jb4 15:46 Body Mass Index 27.41 (79.38 kg, 170.18 cm) mb9 15:46 Pain Scale: Adult mb9 16:32 Pain Scale: Adult mg7 17:12 Pain Scale: Adult mg7 Ferdinand Coma Score: 16:15 Eye Response: spontaneous(4). Motor Response: obeys commands(6). Verbal Response: mg7 oriented(5). Total: 15. MDM: 15:46 Patient medically screened. kb 15:58 Differential diagnosis: bowel obstruction, diverticulitis, non-specific abd pain. Data kb reviewed: vital signs, nurses notes. 20:00 Counseling: I had a detailed discussion with the patient and/or guardian regarding the kb historical points, exam findings, and any diagnostic results supporting the discharge/admit diagnosis, lab results, radiology results, the need for outpatient follow up, a family practitioner, an OB/Gyne specialist, to return to the emergency department if symptoms worsen or persist or if there are any questions or concerns that arise at home. 20:24 Consideration of Admission/Observation Escalation of care including kb admission/observation considered. admission considered, but pt is comfortable after treatment and agrees with outpatient treatment. 08/21 15:50 Order name: Blood Culture Adult (2) kb 08/21 15:50 Order name: CBC with Diff; Complete Time: 16:43 kb 08/21 15:50 Order name: CMP; Complete Time: 16:43 kb 08/21 15:50 Order name: Lactate w/ 2H reflex if indic.; Complete Time: 16:43 kb 08/21 15:50 Order name: Protime (+inr); Complete Time: 16:34 kb 08/21 15:50 Order name: Ptt, Activated; Complete Time: 16:34 kb 08/21 15:50 Order name: Urinalysis w/ reflexes; Complete Time: 19:59 kb 08/21 15:50 Order name: CT Abd/Pelvis - IV Contrast Only; Complete Time: 17:13 kb 08/21 17:14 Order name: US Transvaginal Study (Probe); Complete Time: 18:47 kb 08/21 15:50 Order name: Accucheck; Complete Time: 16:07 kb 08/21 15:50 Order name: Cardiac monitoring; Complete Time: 16:07 kb 08/21 15:50 Order name: EKG - Nurse/Tech; Complete Time: 18:00 kb 08/21 15:50 Order name: IV Saline Lock - Large Bore; Complete Time: 16:07 kb 08/21 15:50 Order name: Labs collected and sent; Complete Time: 16:07 kb 08/21 15:50 Order name: O2 Per Protocol; Complete Time: 15:51 kb 08/21 15:50 Order name: O2 Sat Monitoring; Complete Time: 15:51 kb 08/21 15:50 Order name: Vital Signs; Complete Time: 15:51 kb Administered Medications: 17:01 Drug: Ondansetron IVP 4 mg IVP once; over 2 minutes Route: IVP; Site: right forearm; mg7 17:02 Drug: morphine IVP or IV 4 mg IVP once over 4 mins Route: IVP; Infused Over: 4 mins; mg7 Site: right forearm; 17:03 Drug: NS 0.9% IV (30 ml/kg) 30 ml/kg IV at bolus once; Sepsis Protocol Route: IV; Rate: mg7 bolus; Site: right forearm; 20:30 Drug: Ketorolac IVP 15 mg IVP once Route: IVP; Site: right antecubital; jb4 20:30 Follow up: Response: Medication administered at discharge. jb4 Disposition: 16:03 I was immediately available on-site in the Emergency Department for consultation in the ms3 care of the patient. Disposition Summary: 08/22/23 20:01 Discharge Ordered Notes: Location: Home kb Condition: Stable kb Diagnosis - Other ovarian cysts kb Followup: kb - With: Emergency Department - When: As needed - Reason: Worsening of condition Followup: kb - With: Private Physician - When: 2 - 3 days - Reason: Recheck today's complaints, Continuance of care, Re-evaluation by your physician Discharge Instructions: - Discharge Summary Sheet kb - Ovarian Cyst, Mwyr-sn-Zbat kb Forms: - Medication Reconciliation Form kb - Thank You Letter kb - Antibiotic Education kb - Prescription Opioid Use kb - Patient Portal Instructions kb - Leadership Thank You Letter kb Prescriptions: - Diclofenac Sodium 75 mg Oral tablet, delayed release (enteric coated) - take 1 tablet ORAL route 2 times per day As needed; 30 tablet; Refills: 0, kb Product Selection Permitted Signatures: Dispatcher [employer] EDMS Minerva Rivera, CHIEF DIGITAL OFFICER-C CHIEF DIGITAL OFFICER-Shadib Bentley Collier, RN RN jb4 Nabeel Chaudhari DO DO ms3 Lucrecia Rudd, RN RN mb9 Yana Watts, RN RN mg7 Corrections: (The following items were deleted from the chart) 15:50 15:50 BLOOD CULTURE*+BA.LAB.BRZ ordered. EDMS EDMS 15:50 15:50 CBC+H.LAB.BRZ ordered. EDMS EDMS 15:50 15:50 COMPREHENSIVE METABOLIC PANEL+C.LAB.BRZ ordered. EDMS EDMS 15:50 15:50 LACTATE+C.LAB.BRZ ordered. EDMS EDMS 15:50 15:50 PROTIME (+INR)+COAG.LAB.BRZ ordered. EDMS EDMS 15:50 15:50 PTT, ACTIVATED+COAG.LAB.BRZ ordered. EDMS EDMS 15:50 15:50 Urinalysis+U.LAB.BRZ ordered. EDMS EDMS 15:50 15:50 Abdomen Pelvis W Con+CT.RAD.BRZ ordered. EDMS EDMS
--- NOTE | 2023-08-22 20:01 | ER ---
Nurse's Notes [facility] Name: Jolene Buchanan Age: 38 yrs Sex: Female : 1985 Arrival Date: 08/22/2023 Time: 15:41 Bed 2 Private MD: Diagnosis: Other ovarian cysts Presentation: 08/21 15:46 Chief complaint: Patient states: "I've had severe left lower abdominal pain for 1 day. mb9 I was told to come to the ER to rule out a blockage." PT deniers N/V/D. Coronavirus screen: Vaccine status: Patient reports receiving the 2nd dose of the covid vaccine. Ebola Screen: No symptoms or risks identified at this time. Initial Sepsis Screen: Does the patient meet any 2 criteria? RR > 20 per min. HR > 90 bpm. Does the patient have a suspected source of infection? No. Patient's initial sepsis screen is negative. Risk Assessment: Do you want to hurt yourself or someone else? Patient reports no desire to harm self or others. Onset of symptoms was August 22, 2023. 15:46 Method Of Arrival: Wheelchair mb9 15:46 Acuity: DYLON 2 mb9 Triage Assessment: 15:49 Respiratory: Airway is patent. GI: Abdomen is round non-distended, Reports lower mb9 abdominal pain, constipation, gaseousness. 15:49 General: Appears uncomfortable, ill, Behavior is anxious. mb9 15:49 Neuro: Level of Consciousness is awake, alert, obeys commands, Oriented to person, mb9 place, time, situation, Appropriate for age. Cardiovascular: Patient's skin is warm and dry. : No signs and/or symptoms were reported regarding the genitourinary system. Derm: Skin is pink, warm \\T\\ dry. Musculoskeletal: Range of motion: intact in all extremities. Historical: - Allergies: 15:48 No Known Allergies; mb9 - PMHx: 15:48 Asthma; mb9 - PSHx: 15:48 hernia; section; mb9 15:56 bilateral salpingectomy; kb - Immunization history:: Adult Immunizations up to date. - Infectious Disease History:: Denies. - Social history:: Smoking status: Patient denies any tobacco usage or history of. Screenin:32 [facility] ED Fall Risk Assessment (Adult) History of falling in the last 3 months, mg7 including since admission No falls in past 3 months (0 pts). Abuse screen: Denies threats or abuse. Denies injuries from another. Nutritional screening: No deficits noted. Tuberculosis screening: No symptoms or risk factors identified. Assessment: 16:15 General: Appears uncomfortable. General: Reports Patient reports symptoms began approx mg7 2 days SE[employer]OR[employer], went away and then returned again today. Pain: Complains of pain in abdomen Pain currently is 10 out of 10 on a pain scale. Quality of pain is described as miserable Pain began Is continuous. Neuro: No deficits noted. Cardiovascular: No deficits noted. Respiratory: No deficits noted. GI: Reports bloating, constipation, flatulence, gaseousness, indigestion, intolerance of fluids, intolerance of food, nausea, since Patient reports increased symptoms over the past 2 days. : No deficits noted. 17:12 Reassessment: Patient states symptoms have improved. Patient reports improvement in mg7 pain. 18:51 Reassessment: No changes from previously documented assessment. mg7 19:10 Reassessment: Patient appears in no apparent distress at this time. Patient and/or jb4 family updated on plan of care and expected duration. Pain level reassessed. Patient is alert, oriented x 3, equal unlabored respirations, skin warm/dry/pink. 20:00 Reassessment: Patient appears in no apparent distress at this time. Patient and/or jb4 family updated on plan of care and expected duration. Pain level reassessed. Patient is alert, oriented x 3, equal unlabored respirations, skin warm/dry/pink. Patient states feeling better. Vital Signs: 15:46 BP 142 / 94; Pulse 140; Resp 22; Temp 98.8; Pulse Ox 100% on R/A; Weight 79.38 kg; mb9 Height 5 ft. 7 in. ; Pain 10/10; 16:32 BP 139 / 114; Pulse 113; Resp 21; Pulse Ox 100% on R/A; Pain 9/10; mg7 17:00 BP 132 / 89; Pulse 97; Resp 16; Pulse Ox 99% on R/A; mg7 17:12 BP 132 / 89; Pulse 101; Resp 16; Pulse Ox 100% on R/A; Pain 6/10; mg7 18:30 BP 140 / 93; Pulse 88; Resp 18; Pulse Ox 100% on R/A; mg7 19:30 BP 126 / 85; Pulse 102; Resp 18; Pulse Ox 100% on R/A; jb4 15:46 Body Mass Index 27.41 (79.38 kg, 170.18 cm) mb9 15:46 Pain Scale: Adult mb9 16:32 Pain Scale: Adult mg7 17:12 Pain Scale: Adult mg7 Latosha Coma Score: 16:15 Eye Response: spontaneous(4). Motor Response: obeys commands(6). Verbal Response: mg7 oriented(5). Total: 15. ED Course: 15:42 Patient arrived in ED. mg5 15:45 Inserted saline lock: 18 gauge in right forearm, using aseptic technique. mg7 15:46 Minerva Rivera FNP-C is PHCP. kb 15:46 Nabeel Chaudhari DO is Attending Physician. kb 15:48 Triage completed. mb9 15:49 Arm band placed on. mb9 15:50 Yana Watts, RN is Primary Nurse. mg7 16:07 Lactate w/ 2H reflex if indic. Sent. ld1 16:08 Blood Culture Adult (2) Sent. ld1 16:14 CBC with Diff Sent. mg7 16:14 CMP Sent. mg7 16:14 Protime (+inr) Sent. mg7 16:14 Ptt, Activated Sent. mg7 16:32 Patient has correct armband on for positive identification. Placed in gown. Bed in low mg7 position. Call light in reach. Side rails up X 1. Adult w/ patient. 16:36 CT Abd/Pelvis - IV Contrast Only In Process Unspecified. EDMS 17:37 EKG done, by ED staff. jg11 18:03 US Transvaginal Study (Probe) Sent. mg7 18:03 Urinalysis w/ reflexes Sent. mg7 18:06 US Transvaginal Study (Probe) In Process Unspecified. EDMS 20:31 Provided Education on: discharge instructions.. jb4 20:31 No provider procedures requiring assistance completed. IV discontinued, intact, jb4 bleeding controlled, No redness/swelling at site. Pressure dressing applied. Administered Medications: 17:01 Drug: Ondansetron IVP 4 mg IVP once; over 2 minutes Route: IVP; Site: right forearm; mg7 17:02 Drug: morphine IVP or IV 4 mg IVP once over 4 mins Route: IVP; Infused Over: 4 mins; mg7 Site: right forearm; 17:03 Drug: NS 0.9% IV (30 ml/kg) 30 ml/kg IV at bolus once; Sepsis Protocol Route: IV; Rate: mg7 bolus; Site: right forearm; 20:30 Drug: Ketorolac IVP 15 mg IVP once Route: IVP; Site: right antecubital; jb4 20:30 Follow up: Response: Medication administered at discharge. jb4 Outcome: 20:01 Discharge ordered by . kb 20:31 Discharged to home ambulatory, with family, jb4 20:31 Condition: stable 20:31 Discharge instructions given to patient, Instructed on discharge instructions, follow up and referral plans. medication usage, Demonstrated understanding of instructions, follow-up care, medications, Prescriptions given X 1, 20:31 Patient left the ED. jb4 Signatures: Dispatcher [employer] EDMS Minerva Rivera, WENDY-C GATE MANAGER-Bentley Mckee, RN RN jb4 Rosie Chaudhari RN RN ld1 Lucrecia Rudd RN RN mb9 Laura Feliciano mg5 Last Lucio1 Yana Watts, RN RN mg7 Corrections: (The following items were deleted from the chart) 16:37 15:49 GI: Abdomen is round non-distended, Reports lower abdominal pain, constipation, mb9 gaseousness, mb9 18:01 18:00 Ondansetron IVP 4 mg IVP in right antecubital mg7 mg7 18:01 18:00 morphine IVP or IV 4 mg IVP in right antecubital over 4 mins mg7 mg7
[2023-08-22] MEDS ORDERED: KETOROLAC 30 MG/ML INJ ONE (20:25)
[2023-08-22 21:24] VITALS: BP 126/85; TEMP 98.8; O2SAT 100
--- NOTE | 2023-08-24 11:58 | EKG ---
Test Date: 2023-08-22 Test Time: 17:34:43 Kiln Hand: CHRIS MEASUREMENT RESULTS: Intervals: Rate: 90 CO: 154 QRSD: 92 QT: 378 QTc: 462 [place]: P: 65 CO: 154 QRS: 90 T: 75 INTERPRETIVE STATEMENTS: Normal sinus rhythm Normal ECG Compared to ECG 02/08/2023 08:21:20 No significant changes Electronically Signed On 08-24-23 11:54:33 CDT by Regino Felix
== END 2023-08-22 20:31 | disposition home or self-care (01) ==
LOC: ER 15:41
DX: N83.292 Other ovarian cyst, left side (principal)
CPT/HCPCS: 93005; 87040; 85025; 81001; 36415; 85610; 83605; 85730; 80053; 74177; 76830; 99284; Q9967; J2405; J7030

== ENCOUNTER 2023-09-23 01:05 | Emergency (ER) | payer OTHER ==
--- OUTSIDE RECORDS SUMMARY | 2023-09-23 01:09 | XMS REPORT | Continuity of Care Document ---
Author Name Unknown Address [address] [facility]. [address] [place] [address] [facility] Address [address] [facility] [address] [place] [address] Care Team Providers Care Supervisor Fertilizer Name Role Phone PCP, PATIENT DOES NOT HAVE A Primary Care Physic stanislav Unavailable Ct Plascencia Attending Clinician Un available RADIOLOGY Attending Clinician Unavailable Radiology Attending Clinician Unavailable GC_GCBZW_Kadiyala_S Attending Clinician Unavaila shefali Doctor Unassigned, [place] Attending Clinician U Olviier Lopez MD Attending Clinician [phone] OLIVIER MILLER Attending Clinician Unavail able OLIVIER MILLER Attending Clinician Unavail able Makenzie Douglas RN Attending Clinician Unavailable EDILSON CANNON Attending Clinician Unavailable Only, Ang Db Test Attending Clinician Unavailabl e Edilson Flores Attending Clinician [phone] LAURA SANABRIA Admitting Clinician Unavailable GC_GCBZW_Kadiyala_S Admitting Clinician Unavaila DEB Almanzar Admitting Clinician Unavailable KAREN MA Admitting Clinician Unavailabl e Payers Payer Name Policy Type Policy Number Effective Date Expirati on Date Source JUAN [id number] 2005 00:00:00 [facility] [id number] 2005 00:00:00 Problems Condition Name Condition Details [...] breast Pain of Breast Problem Active 2019-05 112 00:00: 00 [facility] Contracept ion care [...] symptoms Female Genital Organ Symptoms Problem Active - 00:00: 00 [facility] Increased frequency of urination Increased Frequency of Urination Problem Active 4 00:00: 00 [facility] No known active problems No known active problems Disease [facility] Allergies, Adverse Reactions, Alerts Allergy Name Allergy Type Status Severity Reaction(s) Onset Date Inactive Date Treating Clinician Comments Source No Known Allergie s DA Active U 3-17 00:00: 00 [facility] No Known Allergie s DA Active U 17 00:00: 00 [facility] NO KNOWN ALLERGIE S Drug Class Active [facility] Social History Social Habit Start Date Stop Date Quantity Comments Source Gender identity [facility] to SARS-CoV-2 (event) 2022-02-07 00:00:00 2022 12:39:00 Not sure [facility] Sex Assigned At 1985 00:00:00 1985 00:00:00 [facility] Smoking Status Start Date Stop Date Source Never Smoker [facility] Tobacco smoking consumption unknown [facility] Medications Ordered Medication Name Filled Medication Name Start Date Stop Date Current Medication? Ordering Clinician Indication Dosage Frequency Signature (SIG) Comments Components Source One A Day Vitamin tablet 1 tablet every day by oral route. One A Day Vitamin tablet 1 tablet every day by oral route. 2-15 00:00: 00 No 1 Q1D One A Day Vitamin tablet 1 tablet every day by oral route. [facility] DULOXETINE 30 mg capsule 11-06 00:00: 00 Yes 30mg TAKE 1 CAPSULE BY MOUTH IN THE MORNING AND 1 CAPSULE IN THE EVENING. [facility] DULoxetine 30 mg capsule 2021-0518 00:00: 00 11-06 00:00 :00 No 30mg Take 1 capsule by mouth in the morning and 1 capsule in the evening. [facility] DULoxetine 30 mg capsule 2021-05-09 00:00: 00 04-07 00:00 :00 No TAKE 1 CAPSULE BY MOUTH EVERY MORNING [facility] gabapentin 100 mg capsule 2021-05 0-13 00:00: 00 Yes 100mg Take 1 capsule by mouth in the morning and 1 capsule in the evening. [facility] DULoxetine (CYMBALTA) 30 mg capsule 2021-05 0 00:00: 00 03-29 00:00 :00 No 30mg Take 1 capsule by mouth in the morning. [facility] gabapentin enacarbil (HORIZANT) 300 mg TbSR 930 00:00: 00 03-02 00:00 :00 No [id number] 300mg Take 300 mg by mouth daily. [facility] gabapentin 100 mg capsule 01-31 00:00: 00 03-02 00:00 :00 No TAKE 1 CAPSULE 3 TIMES A DAY FOR FACIAL PAIN [facility] cholecalcif leonard (vitamin D3) 1,250 mcg (50,000 unit) capsule TAKE 1 CAPSULE BY MOUTH ONCE WEEKLY cholecalcif leonard (vitamin D3) 1,250 mcg (50,000 unit) capsule TAKE 1 CAPSULE BY MOUTH ONCE WEEKLY No cholecalci ferol (vitamin D3) 1,250 mcg (50,000 unit) capsule TAKE 1 CAPSULE BY MOUTH ONCE WEEKLY [facility] cranberry cranberry No cranberry [facility] diclofenac sodium 75 mg tablet,boyd yed release diclofenac sodium 75 mg tablet,boyd yed release No diclofenac sodium 75 mg tablet,del ayed release [facility] Ellura 200 mg (36 mg PAC) [...] as directed for 90 days. [facility] Probiotic Probiotic No Probiotic [facility] trazodone 50 mg tablet TAKE 1 TABLET BY MOUTH EVERY DAY AT BEDTIME NEEDED trazodone 50 mg tablet TAKE 1 TABLET BY MOUTH EVERY DAY AT BEDTIME NEEDED No trazodone 50 mg tablet TAKE 1 TABLET BY MOUTH EVERY DAY AT BEDTIME NEEDED [facility] Vitamin D Vitamin D No Vitamin D [facility] Zepbound 2.5 mg/0.5 mL subcutaneou s pen injector Zepbound 2.5 mg/0.5 mL subcutaneou s pen injector No Zepbound 2.5 mg/0.5 mL subcutaneo us pen injector [facility] Kelnor 1/35 (28) 1 mg-35 mcg tablet Take 1 tablet every day by oral route for 84 days. skip placebo pills for first two packs then take them every 3rd month Kelnor 1/35 (28) 1 mg-35 mcg tablet Take 1 tablet every day by oral route for 84 days. skip placebo pills for first two packs then take them every 3rd month No 1 Q1D Kelnor 1/35 (28) 1 mg-35 mcg tablet Take 1 tablet every day by oral route for 84 days. skip placebo pills for first two packs then take them every 3rd month [facility] Vital Signs Vital Name Observation Time Observation Value Comments S ource Height 2023-09-07 00:00:00 67 [in_i] [facility] BMI (Body Mass Index) 2023-09-07 00:00:00 31.5 kg/m2 [facility] BP Systolic 2023-09-07 00:00:00 121 mm[Hg] [facility] Body Weight 2023-09-07 00:00:00 201.2 [lb_av] [facility] BP Diastolic 2023-09-07 00:00:00 80 mm[Hg] [facility] BMI (Body Mass Index) 2023-08-24 00:00:00 31.3 kg/m2 [facility] Body Weight 2023-08-24 00:00:00 200 [lb_av] [facility] Height 2023-08-24 00:00:00 67 [in_i] [facility] BP Diastolic 2023-08-24 00:00:00 90 mm[Hg] [facility] BP Systolic 2023-08-24 00:00:00 122 mm[Hg] [facility] Height 2023-08-01 00:00:00 67 [in_i] [facility] BMI (Body Mass Index) 2023-08-01 00:00:00 31.5 kg/m2 [facility] BP Systolic 2023-08-01 00:00:00 129 mm[Hg] [facility] BP Diastolic 2023-08-01 00:00:00 82 mm[Hg] [facility] Body Weight 2023-08-01 00:00:00 201.4 [lb_av] [facility] Height 2023-07-10 00:00:00 67 [in_i] [facility] Body Weight 2023-07-10 00:00:00 209.8 [lb_av] [facility] BP Systolic 2023-07-10 00:00:00 137 mm[Hg] [facility] BMI (Body Mass Index) 2023-07-10 00:00:00 32.9 kg/m2 [facility] BP Diastolic 2023-07-10 00:00:00 86 mm[Hg] [facility] Systolic blood pressure 2022 17:50:00 132 mm[Hg] [facility] Diastolic blood pressure 2022 17:50:00 87 mm[Hg] [facility] Heart rate 2022 17:50:00 89 /min [facility] Body height 2022 17:50:00 170.2 cm [facility] Body weight 2022 17:50:00 97.07 kg [facility] BMI 2022 17:50:00 33.52 kg/m2 [facility] Oxygen saturation in Arterial blood by Pulse oximetry 2022 17:50:00 94 /min [facility] Procedures Procedure Date / Time Performed Performing Clinician Source US, breast, unilateral 2023-09-07 00:00:00 [facility] Medical BI SCREENING TOMOSYNTHESIS BILATERAL 2023-09-03 15:15:00 Requisition, Paper [facility] MAMMO, diagnostic, digital, bilateral 2023-09-03 00:00:00 [facility] Medical MAMMO, screening, digital, bilateral 2023-08-01 00:00:00 [facility] Medical Hemorrhoidectomy 2023-01-19 00:00:00 [facility] ASSIGNMENT OF BENEFITS 2022-12-14 15:21:30 Docto r Unassigned, [place] [facility] EXTERNAL PROVIDER RECORDS 2022-03-13 05:01:00 Do ctor Unassigned, [place] [facility] REFERRAL- REQUEST/RESPONSE 2022-01-20 05:01:00 D alden Unassigned, [place] [facility] BI ULTRASOUND BREAST COMPLETE LEFT 2021-11-09 16:55:53 Karen Ma [facility] Laparoscopy 2020-08-05 00:00:00 Samm [place] Breast Biopsy 2016-05-21 00:00:00 [facility] Medical Delivery Only [facility] Plan of Care Planned Activity Planned Date Details Comments Source Future Appointment 2024-08-07 09:45:00 Laura ohara, [address], [place] [address] [facility] Medical Future Appointment 2024-01-10 09:30:00 Deb martel, [address], [place] [address] [facility] Medical Encounters Start Date/Time End Date/Time Encounter Type Admission Type Attending [facility] Care Facility Care Department Encounter ID Source 2020-08-03 08:37:[address] [facility] [id number] [facility] 2023-09-07 00:00:00 2023-09-07 00:00:00 YUMIKO [place]: [address], [place] [address] , Ph. Critical access hospital - GC_GCBZW_Stormy Rivera* [id number] [facility] 2023-09-03 09:25:56 2023-09-03 23:59:00 Outpatient R RADIOLOGY [facility] [id number] [facility] 2023-09-03 09:25:56 2023-09-03 23:59:00 Hospital Encounter Radiology [facility] [id number] 350.1.13.10 4.2.7.2.686 [id number] [facility] 2023-08-24 00:00:00 2023-08-24 00:00:00 YUMIKO [place]: [address], [place] [address] , Ph. Critical access hospital - GC_GCBZW_Stormy Rivera* [id number] [facility] 2023-08-15 00:00:00 2023-08-15 00:00:00 YUMIKO [place]: [address], [place] [address] , Ph. Critical access hospital - GC_GCBZW_Stormy hernandez Miguel* [id number] [facility] 2023-08-01 00:00:00 2023-08-01 00:00:00 YUMIKO [place]: [address], [place] [id number] , Ph. GC_GCBZW_Ka diyala_S Critical access hospital - GC_GCBZW_Stormy hernandez Miguel* [id number] [facility] 2023-08-01 00:00:00 2023-08-01 00:00:00 YUMIKO [place]: [address], [place] [address] , Ph. Critical access hospital - GC_GCBZW_Stormy mary Miguel* [id number] [facility] 2023-07-24 00:00:00 2023-07-24 00:00:00 WENDY Fierro: [address], [place] [address] , Ph. GC_GCBZW_Ka diyala_S Critical access hospital - GC_GCBZW_Stormy hernandez Miguel* [id number] [facility] 2023-07-24 00:00:00 2023-07-24 00:00:00 EWNDY Fierro: [address], [place] [address] , Ph. Critical access hospital - GC_GCBZW_Stormy hernandez Miguel* [id number] [facility] 2023-07-22 00:00:00 2023-07-22 00:00:00 Outpatient GC_GCBZW_Ka diyala_S PRIV PRIV [id number] [facility] 2023-07-17 00:00:00 2023-07-17 00:00:00 Outpatient GC_GCBZW_Ka diyala_S PRIV PRIV [id number] [facility] 2023-07-16 00:00:00 2023-07-16 00:00:00 Outpatient GC_GCBZW_Ka diyala_S PRIV PRIV [id number] [facility] 2023-07-10 00:00:00 2023-07-10 00:00:00 Deb Stover, BALL ENDER: [address], [place] [address] , Ph. Critical access hospital - GC_GCBZW_Stormy Rivera* [id number] [facility] 2023-07-09 00:00:00 2023-07-09 00:00:00 Outpatient GC_GCBZW_Ka diyala_S PRIV PRIV [id number] [facility] 2023-06-28 00:00:00 2023-06-28 00:00:00 WENDY Bullard: [address], [place] [address] , Ph. Critical access hospital - GC_GCBZW_Stormy Rivera* [id number] [facility] 2023-03-22 00:00:00 2023-03-22 00:00:00 Outpatient GC_GCBZW_Ka diyala_S PRIV PRIV [id number] [facility] 2023-03-06 00:00:00 2023-03-06 00:00:00 Outpatient GC_GCBZW_Ka diyala_S PRIV PRIV [id number] [facility] 2023-03-05 00:00:00 2023-03-05 00:00:00 Outpatient GC_GCBZW_Ka diyala_S PRIV PRIV [id number] [facility] 2022-12-14 10:23:05 2022-12-14 23:59:00 Outpatient R RADIOLOGY [facility] [id number] [facility] 2022-12-14 10:23:05 2022-12-14 23:59:00 Outpatient R RADIOLOGY [facility] [id number] [facility] 2022-12-14 10:20:00 2022-12-14 23:59:00 Hospital Encounter Radiology [facility] 1.2840.114 350.1.13.10 4.2.7.2.686 [id number] [facility] 2022-12-14 00:00:00 2022-12-14 00:00:00 Orders Only Doctor Unassigned, [place] [facility] 1.2840.114 350.1.13.10 4.2.7.2.686 [id number] [facility] 2022-11-23 00:00:00 2022-11-23 00:00:00 Outpatient R RADIOLOGY [facility] [id number] [facility] 2022-10-27 00:00:00 2022-10-27 00:00:00 Refill Olivier Miller [facility] 1.84.114 350.1.13.10 4.2.7.2.686 [id number] [facility] 2022-04-07 00:00:00 2022-04-07 00:00:00 [facility] 1.840.114 350.1.13.10 4.2.7.2.686 [id number] [facility] 2022-03-28 00:00:00 2022-03-28 00:00:00 Refill Angela [facility] 1.840.114 350.1.13.10 4.2.7.2.686 [id number] [facility] 2022-03-13 00:00:00 2022-03-13 00:00:00 Orders Only Doctor Unassigned, [place] [facility] 1.2840.114 350.1.13.10 4.2.7.2.686 [id number] [facility] 2022-03-02 00:00:00 2022-03-02 00:00:00 Telephone Olivier Miller [facility] 1.2.114 350.1.13.10 4.2.7.2.686 [id number] [facility] 2022-02-25 00:00:00 2022-02-25 00:00:00 Refill Olivier Miller [facility] ESTEV[facility] 1.20.114 350.1.13.10 4.2.7.2.686 [id number] [facility] 2022-02-23 00:00:00 2022-02-23 00:00:00 Patient Secure Msg Doctor Unassigned, [place] [facility] 1.20.114 350.1.13.10 4.2.7.2.686 [id number] [facility] 2022-02-22 00:00:00 2022-02-22 00:00:00 Telephone [facility] 1.2.114 350.1.13.10 4.2.7.2.686 [id number] [facility] 2022-02-22 00:00:00 2022-02-22 00:00:00 Telephone Olivier Miller [facility] 1.2.114 350.1.13.10 4.2.7.2.686 [id number] [facility] 2022 13:00:00 2022 13:37:43 Outpatient R OLIVIER MILLER [facility] [id number] [facility] 2022 13:00:00 2022 13:37:43 Office Visit [facility] 1..114 350.1.13.10 4.2.7.2.686 [id number] [facility] 2022-01-20 00:00:00 2022-01-20 00:00:00 Orders Only Doctor Unassigned, [place] [facility] 1.840.114 350.1.13.10 4.2.7.2.686 [id number] [facility] 2021-11-09 10:44:35 2021-11-09 23:59:00 Hospital Encounter Radiology [facility] 1.840.114 350.1.13.10 4.2.7.2.686 [id number] [facility] 2021-11-09 10:43:54 2021-11-09 10:43:54 Hospital Encounter Radiology [facility] 1.840.114 350.1.13.10 4.2.7.2.686 [id number] [facility] 2021-11-09 00:00:00 2021-11-09 10:43:54 Outpatient R RADIOLOGY [facility] [id number] [facility] 2021-11-07 00:00:00 2021-11-07 00:00:00 Patient Secure Msg Doctor Unassigned, [place] [facility] 1..114 350.1.13.10 4.2.7.2.686 [id number] [facility] 2021-08-25 14:16:26 2021-08-25 23:59:00 Outpatient R RADIOLOGY [facility] [id number] [facility] 2021-08-25 14:16:26 2021-08-25 23:59:00 Hospital Encounter Radiology [facility] 1.0.114 350.1.13.10 4.2.7.2.686 [id number] [facility] 2021-08-25 14:09:16 2021-08-25 14:09:00 Emergency [facility] [id number] [facility] 2021-06-24 00:00:00 2021-06-24 00:00:00 Telephone Makenzie Douglas [facility] 1.114 350.1.13.10 4.2.7.2.686 [id number] [facility] 2021-06-23 14:00:00 2021-06-23 14:06:23 Outpatient R EDILSON CANNON [facility] [id number] [facility] 2021-06-23 14:00:00 2021-06-23 14:06:23 Laboratory Only Only, Ang Db Test [facility] 1.114 350.1.13.10 4.2.7.2.686 [id number] [facility] 2021-06-23 14:00:00 2021-06-23 14:00:00 [id number] 2021-06-23 00:00:00 2021-06-23 00:00:00 Orders Only Doctor Unassigned, [place] [facility] 1.0.114 350.1.13.10 4.2.7.2.686 [id number] [facility] Results Test Description Test Time Test Comments Results Resul t Comments Source BI SCREENING TOMOSYNTHESIS BILATERAL 2023-08-20 5 23:52:50 Examination:BI SCREENING TOMOSYNTHESIS BILATERAL History:Patient is 38 year old and is seen for: ?Screening mammogram. Computer-aided detection (CAD) utilized. Comparisons: 12/14/2022 BI SCREENING TOMOSYNTHESIS BILATERAL and 08/25/2021 BI SCREENING TOMOSYNTHESIS BILATERAL, Ultrasound 04/21/2020 Findings:The breasts are heterogeneously dense, which may obscure small masses. There is no evidence of suspicious masses, calcifications, or other abnormal findings.Unchanged 3 cm mass with associated biopsy clip within the left breast upper outer quadrant, middle depth. Impression:No mammographic evidence of malignancy. Recommendation:Tessie choe mammographic follow-up BI-RADS Category: Both 1 - Negative [facility] Culture panel - [id number] 00:00:00* Test Item Value Reference Range Interpretation [...] not present character (test code = character) clear clear color (test code = color) yellow yellow crystals urine (test code = crystals urine) none none epithelial cells, ur (test c ode = epithelial cells, ur) none none-few glucose, urine (test code = glucose, urine) negative negative ketone, urine (test code = ketone, urine) negative negative leukocyte esterase (test cod e = leukocyte esterase) negative negative nitrites urine (test code = nitrites urine) negative negative pH urine (test code = pH urine) 6.5 5.0-8.0 protein, urine (test code = protein, urine) negative negative RBC, urine (test code = RBC, urine) 3-5 0-2 H specific gravity ur (test co de = specific gravity ur) 1.027 1.003-1.030 urobilinogen urine (test cod e = urobilinogen urine) 0.2 mg/dL 0.2-1.0 WBC, urine (test code = WBC, urine) 0-5 0-5 [facility] macro (dipstick) panel - [id number] 09:56:06* Test Item Value Reference Range Interpretation Comme nts Leukocytes (test code = Leukocytes) Negative Nitrite (test code = Nitrite) negative Urobilinogen (test code = Urobilinogen) Normal Protein (test code = Protein) Negative pH (test code = pH) 6.0 Blood (test code = Blood) Non-Hemolyzed: Trace Specific [place] (test code = Specific [place]) 1.015 Ketone (test code = Ketone) Negative Bilirubin (test code = Bilirubin) Negative Glucose (test code = Glucose) Negative Appearance (test code = Appearance) Clear Color (test code = Color) Yellow [facility] macro (dipstick) panel - [id number] 09:56:06* Test Item Value Reference Range Interpretation Comme nts Leukocytes (test code = Leukocytes) Negative Nitrite (test code = Nitrite) negative Urobilinogen (test code = Urobilinogen) Normal Protein (test code = Protein) Negative pH (test code = pH) 6.0 Blood (test code = Blood) Non-Hemolyzed: Trace Specific [place] (test code = Specific [place]) 1.015 Ketone (test code = Ketone) Negative Bilirubin (test code = Bilirubin) Negative Glucose (test code = Glucose) Negative Appearance (test code = Appearance) Clear Color (test code = Color) Yellow [facility] [id number] 00:00:00* Test Item Value Reference Range Interpretation Comme nts LMP date: (test code = LMP date:) 07/11/2023 Pap, liquid-based (test code = Pap, liquid-based) nilm nilm source (liquid-based cytology): (test code = source (liquid-based cytology):) cervical (which includes endocervical) HPV high risk DNA (non 16/18) (test code = HPV high risk DNA (non 16/18)) not detected not detected HPV high risk DNA type 16 (test code = HPV high risk DNA type 16) not detected not detected HPV high risk DNA type 18 (test code = HPV high risk DNA type 18) not detected not detected [facility] Culture panel - [id number] 00:00:00* Test Item Value Reference Range Interpretation Comme nts bacteria, urine (test code = bacteria, urine) none none-few blood, urine (test code = bl ood, urine) negative negative bilirubin, urine (test code = bilirubin, urine) negative negative cast, granular, ur (test cod e = cast, granular, ur) not present not present cast, hyaline, urine (test c ode = cast, hyaline, urine) not present not present cast, RBC, urine (test code = cast, RBC, urine) not present not present character (test code = character) clear clear color (test code = color) yellow yellow crystals urine (test code = crystals urine) none none epithelial cells, ur (test c ode = epithelial cells, ur) none none-few glucose, urine (test code = glucose, urine) negative negative ketone, urine (test code = ketone, urine) negative negative leukocyte esterase (test cod e = leukocyte esterase) negative negative nitrites urine (test code = nitrites urine) negative negative pH urine (test code = pH urine) 6.5 5.0-8.0 protein, urine (test code = protein, urine) negative negative RBC, urine (test code = RBC, urine) 0-2 0-2 specific gravity ur (test co de = specific gravity ur) 1.021 1.003-1.030 urobilinogen urine (test cod e = urobilinogen urine) 0.2 mg/dL 0.2-1.0 WBC, urine (test code = WBC, urine) 0-5 0-5 [facility] W Reflex Culture panel - [id number] 00:00:00* Test Item Value Reference Range Interpretation Comme nts bacteria, urine (test code = bacteria, urine) none none-few blood, urine (test code = bl ood, urine) negative negative bilirubin, urine (test code = bilirubin, urine) negative negative cast, granular, ur (test cod e = cast, granular, ur) not present not present cast, hyaline, urine (test c ode = cast, hyaline, urine) not present not present cast, RBC, urine (test code = cast, RBC, urine) not present not present character (test code = character) clear clear color (test code = color) yellow yellow crystals urine (test code = crystals urine) none none epithelial cells, ur (test c ode = epithelial cells, ur) none none-few glucose, urine (test code = glucose, urine) negative negative ketone, urine (test code = ketone, urine) negative negative leukocyte esterase (test cod e = leukocyte esterase) negative negative nitrites urine (test code = nitrites urine) negative negative pH urine (test code = pH urine) 6.5 5.0-8.0 protein, urine (test code = protein, urine) negative negative RBC, urine (test code = RBC, urine) 0-2 0-2 specific gravity ur (test co de = specific gravity ur) 1.021 1.003-1.030 urobilinogen urine (test cod e = urobilinogen urine) 0.2 mg/dL 0.2-1.0 WBC, urine (test code = WBC, urine) 0-5 0-5 [facility] Medical[facility]inalysis macro (dipstick) panel - [id number] 09:03:05* Test Item Value Reference Range Interpretation Comme nts Leukocytes (test code = Leukocytes) Negative Nitrite (test code = Nitrite) negative Urobilinogen (test code = Urobilinogen) Normal Protein (test code = Protein) Negative pH (test code = pH) 6.0 Blood (test code = Blood) Non-Hemolyzed: Trace Specific [place] (test code = Specific [place]) 1.025 Ketone (test code = Ketone) Negative Bilirubin (test code = Bilirubin) Negative Glucose (test code = Glucose) Negative Appearance (test code = Appearance) Slightly Cloudy Color (test code = Color) Yellow [facility] MedicalUrinalysis macro (dipstick) panel - [id number] 09:03:05* Test Item Value Reference Range Interpretation Comme nts Leukocytes (test code = Leukocytes) Negative Nitrite (test code = Nitrite) negative Urobilinogen (test code = Urobilinogen) Normal Protein (test code = Protein) Negative pH (test code = pH) 6.0 Blood (test code = Blood) Non-Hemolyzed: Trace Specific [place] (test code = Specific [place]) 1.025 Ketone (test code = Ketone) Negative Bilirubin (test code = Bilirubin) Negative Glucose (test code = Glucose) Negative Appearance (test code = Appearance) Slightly Cloudy Color (test code = Color) Yellow [facility] Medicalinfectious disease [id number] 10:04:00Abnormal StatusPriv[facility] MedicalBacteria identified in Urine by [id number] 00:00:00* Test Item Value Reference Range Interpretation Comme nts culture, urine (test code = culture, urine) see below no growth A [facility] complete W Reflex Culture panel - [id number] 00:00:00* Test Item Value Reference Range Interpretation [...] code = WBC, urine) >100 0-5 H [facility] MedicalUrinalysis macro (dipstick) panel - [id number] 10:28:30* Test Item Value Reference Range Interpretation Comme nts Leukocytes (test code = Leukocytes) 1+ Nitrite (test code = Nitrite) positive Urobilinogen (test code = Urobilinogen) Normal Protein (test code = Protein) Negative pH (test code = pH) 6.0 Blood (test code = Blood) Non-Hemolyzed: Moderate Specific [place] (test code = Specific [place]) 1.015 Ketone (test code = Ketone) Negative Bilirubin (test code = Bilirubin) Negative Glucose (test code = Glucose) Normal Appearance (test code = Appearance) Clear Color (test code = Color) Suzette Quijano [id number] 16:13:00* Test Item Value Reference Range Interpretation Comme nts SURG (test code = SURG) -----RUN DATE: 08/06/20 [facility] PAGE 1 RUN TIME: 1613 Specimen Inquiry RUN USER: INTERFACE -----PATIENT: DEVIN GALLOWAY LOC: [place] U #: [id number] AGE/SX: 35/F ROOM: RE08/05/20REG DR: Ct Plascencia : 85 BED: DIS: STATUS: [facility] [place]: ----- SPEC #: [id number] RECD: 08/05/20 STATUS: DEBORAH VANEGAS #: [id number] DESTINY: 08/05/20-[address]: Ct Plascencia MD ENTERED: 08/05/20 SP TYPE: SURG OTHR DR: No Primary or Family PhysicianORDERED: SURG PATH LVL 2, SURG PATH LVL 4/ COPIES TO: No Primary or Family Physician Ct Plascencia MD [address] [place] [address] HISTOLOGY: TISSUE ID BLK PCS YAYO LEV PROCEDURE DISPOSITION ____ ___ ___ ___ FALLOPIAN TUBE, A FALLOPIAN TUBE, B FALLOPIAN TUBE, C PROCEDURES: SURG PATH LVL 2 (08/06/20-906) SURG PATH LVL 4 (08/05/20-2025) TISSUES: A. FALLOPIAN TUBE, NOS - BILATERALFALLOPIAN TUBES B. FALLOPIAN TUBE, NOS - LEFT IMPLANT ENDOMETRIOSIS C. FALLOPIAN TUBE, NOS - RIGHT IMPLANT NODULE CLINICAL HISTORY CONTRACEPTION - Z30.09; ABNORMAL FINDING/CONTRACTING OFFICER - Z01.411 CPT CODES CPT CODE(S): 40575x0 , 49970 , , , , , FINAL DIAGNOSIS A. Fallopian tubes, bilateral, salpingectomy: BILATERAL COMPLETE CROSS-SECTIONS OF UNREMARKABLE FALLOPIAN TUBE PARATUBAL CYSTS B. Soft tissue, left IP, biopsy: SOFT TISSUE WITH FOCAL HEMORRHAGE CONTINUED ON NEXT PAGE -----RUN DATE: 08/06/20 [facility] - LAB PAGE 2 RUN TIME: 1613 Specimen Inquiry RUN USER: INTERFACE -----SPEC #: [facility]:[id number] PATIENT: DEVIN GALLOWAY #[id number] (Continued) FINAL DIAGNOSIS (Continued) C. Soft tissue, [...] a cyst filled with thin clear fluid. Content Specialist sections are submitted as follows: A1 sections through first described fallopian tube; A2 - entire second segment of tube with attached fimbria; A3 - passenger representative sections through tube with no fimbria; [...] submitted as C. bk/nr Grossing performed at [facility] Pathology, [facility], [address], [place] [address]. Licensed Land Surveyor: Abelardo James M.D. MICROSCOPIC DESCRIPTION A. Bilateral [...] CONTINUED ON NEXT PAGE -----RUN DATE: 08/06/20 [facility] PAGE 3 RUN TIME: 1613 Specimen Inquiry RUN USER: INTERFACE -----SPEC #: [facility]:[id number] PATIENT: DEVIN GALLOWAY #[id number] (Continued) ----- Signed SIGNATURE ON Luigi Knight 08/06/20 1613 ----- END OF REPORT COVID 19 INHOUSE [id number] 11:44:00* Test Item Value Reference Range Interpretation Comme nts COVID 19 INHOUSE AG (test code = PESAA68OZER) NEGATIVE Negative Per commercial baker helper , negative results should be treated aspresumptive [...] and symptoms consistent with COVID-19. CBC W/AUTO [id number] 11:24:00* Test Item Value Reference Range Interpretation Comme [facility] WHITE BLOOD CELL (test code = WBC) [...] ode = MDIFF) NO DIFF/SCN CRITERIA URINALYSIS [id number] 11:20:00* Test Item Value Reference Range Interpretation [...] NEGATIVE Urine Specimen Type: Clean CatchUR HCG [id number] 11:20:00* Test Item Value Reference Range Interpretation Comme nts UR HCG QUAL (test code = HCGQLU) NEGATIVE Urine Specimen Type: Clean CatchURINALYSIS [id number] 11:20:00* Test Item Value Reference Range Interpretation [...] NEGATIVE Urine Specimen Type: Clean CatchUR HCG [id number] 11:20:00* Test Item Value Reference Range Interpretation Comme nts UR HCG QUAL (test code = HCGQLU) NEGATIVE NEGATIVE Urine Specimen Type: Clean Catch Notes Date/Time Note Provider Source 2020-08-05 09:47:00 [id number]:4 [id number] [facility] [id number] [place] [id number] PATIENT NAME: DEVIN GALLOWAY ADMIT DATE: 08/05/20ACCOUNT NO: [id number] ROOM NO: AGE: 35 REPORT TYPE: OPERATIVE [...] SURGEON: Ct Plascencia MD ANESTHESIA: General endotracheal. GENERAL PRACTITIONER: Gemma Conrad. ESTIMATED BLOOD LOSS: Minimal. SPECIMENS: [...] minimal. Dictated By: Ct Plascencia MD WT: OP:L.TALISHA/FRANCIE/TANYADD: 08/05/2020 09:47:29DT: 08/05/2020 10:45:15Conf#: [id number]/DID#: [id number] Authenticated by Ct Plascencia MD On 08/19/2020 05:13:07 PM at 1713 PATIENT NAME: DEVIN GALLOWAY [id number]:45:00L.[id number] labjose for patient [id number]:13:29 [facility] 2020-08-05 08:08:00 [id number] +[id number]/skx [id number]/[id number]:0 8:00 [facility] ([facility])Brief Op NoteREPORT#:[id number] REPORT STATUS: SignedDATE:08/05/20 TIME:08 PATIENT: DEVIN GALLOWAY UNIT #: [id number]#: [id number] ROOM/BED:: 85 AGE: 35 SEX: F ATTEND: Ct Plascencia [facility] AUTHOR: Ct Plascencia MD * ALL edits or amendments must be made on the electronic/computer document * Op/Inv Proc Note - BriefPre-procedure diagnosis:Pelvic pain, desired permanent sterilizationPost-procedure diagnosis: same as pre procedure dx, Endometriosis, sigmoid adhesionsProcedures performed:Laparoscopy bilateral tubal ligation, endometriosis excision, lysis of sigmoid adhesionsPrimary Surgeon:heavenly Rn Urology(s): nita conrad FAAnesthesia: general anesthesiaFindings:sigmoid adhesions to [...] class: cleanDisposition: stable at 0939 RPT #: [id number] OF REPORT OPOperative [id number]:08:00L.[id number] ilable for patient [id number]:39:46 [facility]
[2023-09-23] MEDS ORDERED: KETOROLAC 30 MG/ML INJ ONE ×2 (01:23→07:34)
[2023-09-23] MEDS ORDERED: NA CHLORIDE 0.9% 1,000 ML ONE (01:23)
[2023-09-23 02:32] LABS: Absolute Eosinophils 0.1 K/uL (0-0.5); Absolute Lymphocytes (CBC) 2.8 K/uL (0.7-4.9); Absolute Monocytes 0.7 K/uL (0.1-1.3); Absolute Neutrophil 6.9 K/uL (1.8-8.0); Basophils % 0.4 % (0-1.3); Eosinophils % 0.7 % (0-4.4); Hematocrit 38.4 % (36.0-45.0); Hemoglobin 12.6 g/dL (12.0-15.0); Lymphocytes % 26.7 % (15.3-44.8); MCH 29.6 pg (27.0-35.0); MCHC 32.9 g/dL (32.0-36.0); MPV 10.8 fL (7.6-11.3); Monocytes % 6.9 % (3.3-12.3); Neutrophils % 65.3 % (41.7-73.7); Nucleated Red Blood Cells % 0.1 % (0-0); Platelets 260 thou/uL (152-406); RBC Red Blood Cell Count 4.27 M/uL (3.86-4.86); Red Cell Distribution Width 12.9 % (12.1-15.2)
[2023-09-23 02:36] LABS: Sqamous Epithelial None Seen /HPF (None Seen); Urine Bacteria None Seen /HPF (<20); Urine Bilirubin NEGATIVE (Negative); Urine Blood 3+ (Negative); Urine Clarity Extremely Turbid (Clear); Urine Color Colorless (Yellow); Urine Culture Reflex Order NOT NEEDED; Urine Glucose NEGATIVE (Negative); Urine Ketones TRACE (Negative); Urine Microscopic Reflex YN ORDER UMIC; Urine Mucus Slight /HPF (None Seen); Urine Nitrite NEGATIVE (Negative); Urine Protein NEGATIVE (Negative); Urine RBC >50 /HPF (None Seen); Urine Urobilinogen Normal (Normal); Urine pH 8.5 (5.0-7.0)
[2023-09-23 02:55] LABS: Albumin 3.9 g/dL (3.4-5.0); Albumin/Globulin Ratio 1.1 (1.1-1.8); Anion Gap 8.5 mEq/L (5.0-15.0); Bilirubin Total 0.5 mg/dL (0.2-1.0); Globulin 3.6 g/dL (2.3-3.5); Potassium 3.5 mEq/L (3.5-5.1); Protein, Total 7.5 g/dL (6.4-8.2)
[2023-09-23] MEDS ORDERED: ONDANSETRON 4 MG/2 ML VIAL ONE (03:09)
[2023-09-23] MEDS ORDERED: MORPHINE 4 MG/ML SYR ONE ×2 (03:09→07:34)
[2023-09-23] MEDS ORDERED: CEFTRIAXONE 1000 MG/VIAL ONE ×2 (07:16→07:25)
[2023-09-23] MEDS ORDERED: NA CHLORIDE 0.9% 0 ML ONE (07:16)
[2023-09-23] MEDS ORDERED: CIPROFLOXACIN HCL 500 MG TAB ONE (07:16)
--- NOTE | 2023-09-23 07:24 | ER ---
Nurse's Notes [facility] Name: Jolene Buchanan Age: 38 yrs Sex: Female : 1985 Arrival Date: 09/23/2023 Time: 01:05 Bed 6 Private MD: Diagnosis: Hydronephrosis with renal and ureteral calculous obstruction;Abnormal findings on diagnostic imaging of other specified body structures-2.1 cm x 1.4 cm solid appearing breast mass Presentation: 09/22 01:24 Chief complaint: Patient states: severe pelvic pain, blood in urine. Coronavirus vc1 screen: Vaccine status: Patient reports receiving the 2nd dose of the covid vaccine. At this time, the client does not indicate any symptoms associated with coronavirus-19. Ebola Screen: Patient negative for fever greater than or equal to 101.5 degrees Fahrenheit, and additional compatible Ebola Virus Disease symptoms Patient denies exposure to infectious person. Patient denies travel to an Ebola-affected area in the 21 days before illness onset. No symptoms or risks identified at this time. Initial Sepsis Screen: Does the patient meet any 2 criteria? No. Patient's initial sepsis screen is negative. Does the patient have a suspected source of infection? No. Patient's initial sepsis screen is negative. Risk Assessment: Do you want to hurt yourself or someone else? Patient reports no desire to harm self or others. Onset of symptoms was September 22, 2023. 01:24 Method Of Arrival: Ambulatory vc1 01:24 Acuity: DYLON 3 vc1 Triage Assessment: 01:27 General: Behavior is. General: Appears in no apparent distress. uncomfortable, Behavior vc1 is cooperative, crying. Pain: Complains of pain in pelvis Pain radiates to suprapubic area Pain currently is 9 out of 10 on a pain scale. at worst was 10 out of 10 on a pain scale. Quality of pain is described as sharp, Pain began suddenly. Neuro: Level of Consciousness is awake, alert, obeys commands, Oriented to person, place, time, situation, Appropriate for age. Respiratory: Airway is patent Respiratory effort is even, unlabored, Respiratory pattern is regular, symmetrical. : Reports pain in suprapubic area with urination, blood in urine. 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 - Infectious Disease History:: Denies. - Social history:: Smoking status: Patient denies any tobacco usage or history of. Screenin:29 [facility] ED Fall Risk Assessment (Adult) History of falling in the last 3 months, bm8 including since admission No falls in past 3 months (0 pts) Confusion or Disorientation No (0 pts) Intoxicated or Sedated No (0 pts) Impaired Gait No (0 pts) Mobility Assist Device Used No (0 pt) Altered Elimination No (0 pt) Score/Fall Risk Level 0 - 2 = Low Risk Oriented to surroundings, Maintained a safe environment, Educated pt \T\ family on fall prevention, incl call for assistance when getting out of bed. 01:30 Abuse screen: Denies threats or abuse. Nutritional screening: No deficits noted. vc1 Tuberculosis screening: No symptoms or risk factors identified. Assessment: :29 General: Appears distressed, uncomfortable, Behavior is cooperative, crying. Pain: bm8 Complains of pain in abdomen and suprapubic area and pelvis Pain currently is 10 out of 10 on a pain scale. Neuro: No deficits noted. Level of Consciousness is awake, alert, obeys commands, Oriented to person, place, time, situation, Appropriate for age. Cardiovascular: No deficits noted. Denies chest pain, Capillary refill < 3 seconds Patient's skin is warm and dry. Respiratory: Airway is patent Respiratory effort is even, unlabored, Respiratory pattern is regular, symmetrical. : Reports pelvic pain that began this morning. became more intense throughout the day, and blood in urine. 02:26 Reassessment: Patient appears in no apparent distress at this time. Patient and/or bm8 family updated on plan of care and expected duration. Pain level reassessed. Patient is alert, oriented x 3, equal unlabored respirations, skin warm/dry/pink. Patient states feeling better. Patient states symptoms have improved. 03:15 Reassessment: Provider notified of pt's pain level increase. new orders received and bm8 carried out. Pain: Complains of pain in suprapubic area and pelvis Pain currently is 7 out of 10 on a pain scale. 04:01 Reassessment: Patient and/or family updated on plan of care and expected duration. Pain tm6 level reassessed. Patient is alert, oriented x 3, equal unlabored respirations, skin warm/dry/pink. Patient states feeling better. Patient states symptoms have improved. 04:51 Reassessment: No changes from previously documented assessment. tm6 05:45 Reassessment: No changes from previously documented assessment. tm6 06:23 Reassessment: Patient appears in no apparent distress at this time. Patient and/or bm8 family updated on plan of care and expected duration. Pain level reassessed. Patient is alert, oriented x 3, equal unlabored respirations, skin warm/dry/pink. pt up to restroom. 07:44 General: Appears uncomfortable, Behavior is calm, cooperative, quiet. Pain: Complains ss of pain in suprapubic area Quality of pain is described as stabbing, Is continuous. Neuro: Level of Consciousness is awake, alert, obeys commands, Oriented to person, place, time, situation. Respiratory: Airway is patent Respiratory effort is even, unlabored, Respiratory pattern is regular, symmetrical. EENT: Oral mucosa is moist. Derm: Skin is intact, is healthy with good turgor, Skin is dry, Skin is pink, warm \T\ dry. normal. 07:44 Reassessment: RASS score 0 at this time. ss Vital Signs: 01:24 BP 164 / 102; Pulse 113; Resp 16; Temp 98.4; Pulse Ox 100% ; Weight 90.26 kg; Height 5 vc1 ft. 7 in. ; Pain 9/10; 02:26 BP 142 / 90; Pulse 78; Resp 20; Temp 98.4; Pulse Ox 100% ; Pain 5/10; bm8 04:00 BP 132 / 96; Pulse 88; Pulse Ox 100% on R/A; Pain 4/10; tm6 04:50 BP 129 / 88; Pulse 91; Pulse Ox 100% on R/A; tm6 05:45 BP 132 / 87; Pulse 89; Pulse Ox 96% on R/A; tm6 06:23 BP 137 / 89; Pulse 75; Resp 18; Temp 98.4; Pulse Ox 97% ; Pain 4/10; bm8 07:43 BP 125 / 96; Pulse 96; Resp 18; Temp 98.6(TE); Pulse Ox 100% on R/A; Pain 7/10; ss 01:24 Body Mass Index 31.17 (90.26 kg, 170.18 cm) vc1 01:24 Pain Scale: Adult vc1 02:26 Pain Scale: Adult bm8 04:00 Pain Scale: Adult tm6 06:23 Pain Scale: Adult bm8 07:43 Pain Scale: Adult ss Latosha Coma Score: 01:29 Eye Response: spontaneous(4). Motor Response: obeys commands(6). Verbal Response: bm8 oriented(5). Total: 15. 02:26 Eye Response: spontaneous(4). Motor Response: obeys commands(6). Verbal Response: bm8 oriented(5). Total: 15. 06:23 Eye Response: spontaneous(4). Motor Response: obeys commands(6). Verbal Response: bm8 oriented(5). Total: 15. ED Course: 01:07 Patient arrived in ED. jj6 01:09 Nabeel Chaudhari DO is Attending Physician. ms3 01:12 Kody Lopez, RN is Primary Nurse. bm8 01:26 Triage completed. vc1 01:26 Arm band placed on right wrist. vc1 01:29 Door closed. Noise minimized. Lights dimmed. Warm blanket given. Verbal reassurance bm8 given. Head of bed elevated. 01:29 No provider procedures requiring assistance completed. Initial lab(s) drawn, by ut, bm8 sent to lab. Inserted saline lock: 20 gauge in right antecubital area, using aseptic technique. Blood collected. 01:30 Patient has correct armband on for positive identification. Placed in gown. Bed in low vc1 position. Pulse ox on. NIBP on. 02:26 Urine collected: clean catch specimen, cloudy. bm8 03:03 CT Abd/Pelvis - IV Contrast Only In Process Unspecified. EDMS 07:03 Attending Physician role handed off by Nabeel Chaudhari DO zack 07:03 Nitish Swenson MD is Attending Physician. zack 07:23 Too Blanton MD is Referral Physician. zack 07:27 Delgado Garcia MD is Referral Physician. [facility] 08:00 Primary Nurse role handed off by Kody Lopez, RN ll1 08:03 IV discontinued, intact, bleeding controlled, No redness/swelling at site. Pressure ss dressing applied. Administered Medications: 01:26 Drug: NS 0.9% IV 1000 ml IV at 1 bolus Per protocol; 1000 mL bolus Route: IV; Rate: 1 bm8 bolus; Site: right antecubital; 03:15 Follow up: Response: No adverse reaction; IV Status: Completed infusion; IV Intake: bm8 1000ml 01:26 Drug: TORadol - Ketorolac IVP 15 mg IVP once Route: IVP; Site: right antecubital; bm8 03:14 Follow up: Response: No adverse reaction bm8 03:14 Drug: morphine IVP or IV 4 mg IVP once over 4 mins Route: IVP; Infused Over: 4 mins; bm8 Site: right antecubital; 03:48 Follow up: Response: No adverse reaction bm8 03:14 Drug: Ondansetron IVP 4 mg IVP once; over 2 minutes Route: IVP; Site: right antecubital;bm8 03:48 Follow up: Response: No adverse reaction bm8 07:38 Drug: Flomax PO 0.4 mg PO once Route: PO; ld1 07:45 Follow up: Response: Medication administered at discharge. ss 07:38 Drug: morphine IVP or IV 4 mg IVP once over 4 mins Route: IVP; Infused Over: 4 mins; ss Site: right antecubital; 08:03 Follow up: Response: No adverse reaction; Pain is decreased; RASS: Alert and Calm (0) ss 07:40 Drug: Ketorolac IVP 30 mg IVP once Route: IVP; Site: right antecubital; ss 07:45 Follow up: Response: Medication administered at discharge. ss 07:43 Drug: Rocephin IV 1 grams IV at per protocol once; Given slow IV push per pharmacy instructions Route: IV; Rate: per protocol; Site: right antecubital; 08:03 Follow up: IV Status: Completed infusion ss 07:43 Drug: Ciprofloxacin PO 500 mg PO once Route: PO; ss 07:45 Follow up: Response: Medication administered at discharge. Medication: 01:29 VIS not applicable for this client. bm8 Intake: 03:15 IV: 1000ml; Total: 1000ml. bm8 Outcome: 07:24 Discharge ordered by . zack 07:46 Discharge instructions given to patient, significant other, Instructed on discharge instructions, follow up and referral plans. medication usage, Demonstrated understanding of instructions, follow-up care, medications, Prescriptions given X 4, 08:03 Discharged to home via wheelchair, ss 08:03 Condition: good 08:04 Patient left the ED. Signatures: Dispatcher [employer] EDAZ Nitish Swenson MD MD cha Blanchard, Shelby, RN RN ss Carlie Roberts RN RN ll1 Nabeel Chaudhari DO DO ms3 Rosie Chaudhari RN RN ld1 Karen Lucioj6 Lilly Gross RN RN vc1 Reece Peacock, RN RN tm6 Kody Lopez, RN RN bm8 Corrections: (The following items were deleted from the chart) 01:30 01:20 Home Meds: endometriosis; vc1 vc1
--- NOTE | 2023-09-23 07:24 | EDPHYS ---
Physician Documentation [facility] Name: Jolene Buchanan Age: 38 yrs Sex: Female : 1985 Arrival Date: 09/23/2023 Time: 01:05 Bed 6 Private MD: ED Physician Nitish Swenson HPI: 09/22 01:14 This 38 yrs old Female presents to ER via Unassigned with complaints of Pelvic ms3 Pain, Pain With Urination, HEMATURIA. 01:14 38-year-old female with past medical history of endometriosis, diverticulitis, ovarian ms3 cyst presents to the emergency department for hematuria and suprapubic pain that began on Sunday morning. Patient states the pain has become worse over the last 2 hours and is currently rated a 10/10. Patient denies fevers, chills, nausea, vomiting. Patient endorses diarrhea. 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 - Infectious Disease History:: Denies. - Social history:: Smoking status: Patient denies any tobacco usage or history of. ROS: 01:14 Constitutional: Negative for fever, and chills. Neck: Negative for injury, pain, and ms3 swelling, Cardiovascular: Negative for chest pain, and palpitations. Respiratory: Negative for shortness of breath, cough, wheezing, and pleuritic chest pain, 01:14 MS/Extremity: Negative for injury and deformity, Skin: Negative for injury, rash, and discoloration, :14 Abdomen/GI: Positive for abdominal pain, :14 : Positive for hematuria, Exam: 01:14 Constitutional: This is a well developed, well nourished patient who is awake, alert, ms3 and in no acute distress. Head/Face: Normocephalic, atraumatic. Neck: Trachea midline, no cervical lymphadenopathy. Supple, full range of motion without nuchal rigidity, or vertebral point tenderness. No Meningismus. Chest/axilla: Normal chest wall appearance and motion. Nontender with no deformity. Cardiovascular: Regular rate and rhythm with a normal S1 and S2. No gallops, murmurs, or rubs. Normal PMI, no JVD. No pulse deficits. Respiratory: Lungs have equal breath sounds bilaterally, clear to auscultation and percussion. No rales, rhonchi or wheezes noted. No increased work of breathing, no retractions or nasal flaring. Abdomen/GI: Soft, non-tender, with normal bowel sounds. No distension or tympany. No guarding or rebound. No evidence of tenderness throughout. Skin: Warm, dry with normal turgor. Normal color with no rashes, no lesions, and no evidence of cellulitis. Vital Signs: 01:24 BP 164 / 102; Pulse 113; Resp 16; Temp 98.4; Pulse Ox 100% ; Weight 90.26 kg; Height 5 vc1 ft. 7 in. ; Pain 9/10; 02:26 BP 142 / 90; Pulse 78; Resp 20; Temp 98.4; Pulse Ox 100% ; Pain 5/10; bm8 04:00 BP 132 / 96; Pulse 88; Pulse Ox 100% on R/A; Pain 4/10; tm6 04:50 BP 129 / 88; Pulse 91; Pulse Ox 100% on R/A; tm6 05:45 BP 132 / 87; Pulse 89; Pulse Ox 96% on R/A; tm6 06:23 BP 137 / 89; Pulse 75; Resp 18; Temp 98.4; Pulse Ox 97% ; Pain 4/10; bm8 07:43 BP 125 / 96; Pulse 96; Resp 18; Temp 98.6(TE); Pulse Ox 100% on R/A; Pain 7/10; ss 01:24 Body Mass Index 31.17 (90.26 kg, 170.18 cm) vc1 01:24 Pain Scale: Adult vc1 02:26 Pain Scale: Adult bm8 04:00 Pain Scale: Adult tm6 06:23 Pain Scale: Adult bm8 07:43 Pain Scale: Adult ss Potter Coma Score: 01:29 Eye Response: spontaneous(4). Motor Response: obeys commands(6). Verbal Response: bm8 oriented(5). Total: 15. 02:26 Eye Response: spontaneous(4). Motor Response: obeys commands(6). Verbal Response: bm8 oriented(5). Total: 15. 06:23 Eye Response: spontaneous(4). Motor Response: obeys commands(6). Verbal Response: bm8 oriented(5). Total: 15. MDM: 01:14 Differential diagnosis: endometriosis, kidney stone, nonspecific abdominal pain, ms3 ovarian cyst, urinary tract infection. 01:16 Patient medically screened. ms3 07:09 Transition of care: After a detail discussion of the patient's case, care is ms3 transferred to Nitish Swenson MD. 07:21 Data reviewed: vital signs, nurses notes, lab test result(s), radiologic studies, CT zack scan. Consideration of Admission/Observation Escalation of care including admission/observation considered. I considered the following discharge prescriptions or medication management in the emergency department Medications were administered in the Emergency Department. See MAR. Independent interpretation of the following test(s) in the Emergency Department CT Scan: My interpretation is ct stone. Test considered but Not performed: Ultrasound abd usg. Care significantly affected by the following chronic conditions: asthma. 09/22 01:16 Order name: CBC with Diff; Complete Time: 02:56 09/22 01:16 Order name: CMP; Complete Time: 02:56 09/22 01:16 Order name: Test, Urine; Complete Time: 02:56 09/22 01:16 Order name: Urinalysis w/ reflexes; Complete Time: 02:37 09/22 01:16 Order name: CT Abd/Pelvis - IV Contrast Only 09/22 01:16 Order name: IV Saline Lock; Complete Time: 01:26 09/22 01:16 Order name: Labs collected and sent; Complete Time: : Administered Medications: 01:26 Drug: NS 0.9% IV 1000 ml IV at 1 bolus Per protocol; 1000 mL bolus Route: IV; Rate: 1 bm8 bolus; Site: right antecubital; 03:15 Follow up: Response: No adverse reaction; IV Status: Completed infusion; IV Intake: bm8 1000ml 01:26 Drug: TORadol - Ketorolac IVP 15 mg IVP once Route: IVP; Site: right antecubital; bm8 03:14 Follow up: Response: No adverse reaction bm8 03:14 Drug: morphine IVP or IV 4 mg IVP once over 4 mins Route: IVP; Infused Over: 4 mins; bm8 Site: right antecubital; 03:48 Follow up: Response: No adverse reaction bm8 03:14 Drug: Ondansetron IVP 4 mg IVP once; over 2 minutes Route: IVP; Site: right antecubital;bm8 03:48 Follow up: Response: No adverse reaction bm8 07:38 Drug: Flomax PO 0.4 mg PO once Route: PO; ld1 07:45 Follow up: Response: Medication administered at discharge. ss 07:38 Drug: morphine IVP or IV 4 mg IVP once over 4 mins Route: IVP; Infused Over: 4 mins; ss Site: right antecubital; 08:03 Follow up: Response: No adverse reaction; Pain is decreased; RASS: Alert and Calm (0) ss 07:40 Drug: Ketorolac IVP 30 mg IVP once Route: IVP; Site: right antecubital; ss 07:45 Follow up: Response: Medication administered at discharge. ss 07:43 Drug: Rocephin IV 1 grams IV at per protocol once; Given slow IV push per pharmacy ss instructions Route: IV; Rate: per protocol; Site: right antecubital; 08:03 Follow up: IV Status: Completed infusion ss 07:43 Drug: Ciprofloxacin PO 500 mg PO once Route: PO; ss 07:45 Follow up: Response: Medication administered at discharge. ss Disposition Summary: 09/23/23 07:24 Discharge Ordered Notes: Location: Home zack Problem: new zack Symptoms: have improved zack Condition: Stable zack Diagnosis - Hydronephrosis with renal and ureteral calculous obstruction zack - Abnormal findings on diagnostic imaging of other specified body structures - 2.1 cm zack x 1.4 cm solid appearing breast mass Followup: zack - With: Private Physician - When: 2 - 3 days - Reason: Recheck today's complaints, Re-evaluation by your physician Followup: zack - With: Too Blanton MD - When: 2 - 3 days - Reason: Recheck today's complaints, Re-evaluation by your physician Followup: zack - With: Delgado Garcia MD - When: 2 - 3 days - Reason: Recheck today's complaints, Re-evaluation by your physician Discharge Instructions: - Discharge Summary Sheet zack - Kidney Stones zack - Kidney Stones, [id number] zack - Hydronephrosis zack - Incidental Abnormal Radiological Finding zack - Dietary Guidelines to Help Prevent Kidney Stones zack Forms: - Medication Reconciliation Form zack - Antibiotic Education zack - Prescription Opioid Use zack - Patient Portal Instructions zack - Leadership Thank You Letter zack - Work release form ss Prescriptions: - Flomax 0.4 mg Oral capsule - take 1 capsule ORAL route every 24 hours; 20 capsule; Refills: 0, Product zack Selection Permitted - acetaminophen-codeine 300-30 mg Oral tablet - take 2 tablet ORAL route every 6 hours; 20 tablet; Refills: 0, Product zack Selection Permitted - ondansetron 4 mg Oral Tablet,disintegrating - take 1 tablet ORAL route every 6 hours; 20 tablet; Refills: 0, Product zack Selection Permitted - Cipro 500 mg Oral Tablet - take 1 tablet ORAL route every 12 hours for 7 days; 14 tablet; Refills: 0, zack Product Selection Permitted Signatures: Dispatcher [employer] EDNitish Mistry MD MD cha Blanchard, Shelby, RN RN ss Nabeel Chaudhari, DO ms3 Rosie Chaudhari RN RN ld1 Lilly Gross, RN RN vc1 Kody Lopez, RN RN bm8 Corrections: (The following items were deleted from the chart) 01: 01:17 CBC+H.LAB.BRZ ordered. EDMS EDMS :17 01:17 COMPREHENSIVE METABOLIC PANEL+C.LAB.BRZ ordered. EDMS EDMS :17 01:17 Test, Urine+UC.LAB.BRZ ordered. EDMS EDMS : 01:17 Urinalysis+U.LAB.BRZ ordered. EDMS EDMS :17 01:17 Abdomen Pelvis W Con+CT.RAD.BRZ ordered. EDMS EDMS 01:30 01:20 Home Meds: endometriosis; vc1 vc1
[2023-09-23] MEDS ORDERED: NA CHLORIDE 0.9% 50 ML ONE (07:25)
[2023-09-23] MEDS ORDERED: TAMSULOSIN 0.4 MG SR CAP ONE (07:29)
[2023-09-23 08:09] VITALS: O2SAT 100
[2023-09-23 08:37] VITALS: BP 125/96; TEMP 98.6
--- NOTE | 2023-09-24 11:08 | RAD REPORT ---
EXAM DESCRIPTION: CT - Abdomen Pelvis W Contrast - 09/23/2023 7:11 am CLINICAL HISTORY: Abdominal pain. COMPARISON: CT abdomen pelvis with contrast August 22, 2023 and TECHNIQUE: Without oral contrast administration, and after intravenous administration of iodinated c ontrast, contiguous axial sections are obtained through the abdomen and pelvis including delayed imag ing, as per protocol. Sagittal and coronal reformations are obtained. Automatic exposure control (AEC ), mA and/or kV adjustment by patient size, and/or iterative reconstructive technique was used, per d epartmental dose optimization program, during the performance of the CT examination. FINDINGS: The visualized lung bases are normal. Partially visualized left breast 2.1 x 1.4 cm solid appearing mass. Additional evaluation with nonemergent mammogram and breast ultrasound evaluation by [facility] certified breast radiologist is recommended. The liver is normal in size, attenuation, enhancement and outline. Spleen is normal limits in size and demonstrates no focal abnormalities. Normal appearance of the biliary tree, pancreas and adrenal glands are noted. The gallbladder is unremarkable.. The kidneys demonstrate presence of a 3 mm right renal calculus. The kidneys demonstrate normal size, shape and outline demonstrating normal enhancement. Presence of mild fullness of the left ureter is noted with presence of a 3 to 4 mm calculus in the di stal left ureter. Normal appearance of the aorta, IVC and retroperitoneum are noted. Stomach appears normal. The small bowel loops appear normal. The appendix is normal. The colon appears unremarkable. There is no evidence of free intraperitoneal fluid or air. CT examination of the pelvis demonstrates no evidence of mass or lymphadenopathy. The urinary bladder appears unremarkable. The Uterus and ovaries appear unremarkable.. There is no evidence of inguina l lymphadenopathy. The visualized bony structures are unremarkable. IMPRESSION: 1. Presence of a 3 to 4 mm calculus in the distal left ureter with mild fullness of th e left ureter. 2. Presence of a 3 mm right renal calculus. 3. Presence of a 2.1 x 1.4 cm solid appearing partially visualized left breast mass. Additional candace luation with nonemergent mammogram and breast ultrasound evaluation by [facility] certified breast radiolog ist is recommended. Electronically signed by: Patrizia Ashley MD 09/23/2023 07:04 AM CDT Due to temporary technical issues with the PACS/Fluency reporting system, reports are being signed by the in house radiologist without review as a courtesy to ensure prompt reporting. The interpreting r adiologist is fully responsible for the content of the report.
== END 2023-09-23 08:04 | disposition home or self-care (01) ==
LOC: ER 01:05
DX: N13.2 Hydronephrosis with renal and ureteral calculous obstruction (principal); N63.0 Unspecified lump in unspecified breast
CPT/HCPCS: 96365; 96361; 85025; 81001; 36415; 81025; 80053; 74177; 96375; 99284; Q9967; J2405; J7030; J0696

== ENCOUNTER 2023-11-13 08:49 | Day surgery (SDC) | payer OTHER ==
[2023-11-07 10:08] LABS: Absolute Eosinophils 0.2 K/uL (0-0.5); Absolute Lymphocytes (CBC) 1.2 K/uL (0.7-4.9); Absolute Monocytes 0.3 K/uL (0.1-1.3); Absolute Neutrophil 2.3 K/uL (1.8-8.0); Basophils % 0.8 % (0-1.3); Eosinophils % 5.1 % (0-4.4); Hematocrit 34.4 % (36.0-45.0); Hemoglobin 11.3 g/dL (12.0-15.0); MCH 29.9 pg (27.0-35.0); MCV 90.7 fL (80-100); MPV 10.2 fL (7.6-11.3); Monocytes % 7.8 % (3.3-12.3); Neutrophils % 57.3 % (41.7-73.7); Platelets 218 thou/uL (152-406); RBC Red Blood Cell Count 3.79 M/uL (3.86-4.86)
[2023-11-07 10:10] LABS: Protime INR 1.09
[2023-11-07 10:15] LABS: Anion Gap 7.9 mEq/L (5.0-15.0); Potassium 3.9 mEq/L (3.5-5.1)
[2023-11-13] MEDS ORDERED: Ringers Lactate 1,000 ML IV ONE (09:17)
[2023-11-13] MEDS: ERTAPENEM NA 1 GM in NA CHLORIDE 0.9% 100 ML IVPB SCH (09:34)
[2023-11-13] MEDS ORDERED: FENTANYL CITR 100 MCG/2 ML ONE (10:13)
[2023-11-13] MEDS ORDERED: propofoL 200 MG/20 ML VIAL IV ONE (10:13)
[2023-11-13] MEDS ORDERED: MIDAZOLAM HCL 2 MG/2 ML INJ ONE (10:13)
[2023-11-13] MEDS ORDERED: LIDOCAINE 1% MPF 5 ML VIAL ONE (10:15)
[2023-11-13] MEDS ORDERED: dexAMETHasone 10 MG/ML VIAL ONE (10:54)
[2023-11-13] MEDS ORDERED: ONDANSETRON 4 MG/2 ML VIAL ONE (10:54)
[2023-11-13] MEDS ORDERED: HYDROCODONE/APAP 5/325 MG TAB ONE (12:21)
[2023-11-13] MEDS ORDERED: PHENAZOPYRIDINE 100MG TAB PO ONE (12:21)
[2023-11-13] MEDS: PHENAZOPYRIDINE 100MG TAB PO ONE (12:22)
[2023-11-13] MEDS: HYDROCODONE/APAP 5/325 MG TAB PO PRN (12:23)
[2023-11-13 13:15] VITALS: BP 118/70; TEMP 96.9; O2SAT 99
--- NOTE | 2023-11-13 13:51 | RAD REPORT ---
EXAM DESCRIPTION: RAD - Urethrocystogrphy Retrograde - 11/13/2023 12:05 pm CLINICAL HISTORY: LEFT KIDNEY STONE COMPARISON: None available. FINDINGS: Three Images were sent to PACS, documenting fluoroscopy use during an image guided retrogr jose cystouretrogram scratched procedure. No radiologist was available for the procedure, nor will any image interpretation he provided. Please refer to the procedural report for additional details. Fluoroscopy time: 0.08 Minutes. IMPRESSION: Documentation of fluoroscopy utilization as above.
--- NOTE | 2023-11-13 20:44 | OP ---
Surgeon: ANGELY MAXWELL Preoperative Diagnoses: 1.Distal left ureteral calculus. 2.Status post left ureteral stent placement. Postoperative Diagnoses: 1.Distal left ureteral calculus. 2.Status post left ureteral stent placement. 3.Radiolucent right nephrolithiasis. Principal Procedures: 1.Cystoscopy with left ureteral stent extraction. 2.Left ureteroscopy with stone basketing and extraction. Indication For Procedure: Ms. Buchanan is a 38-year-old woman who presented with obstructive ureteroli thiasis and pain. She underwent operative left ureteral stent placement and had significant issues w ith stent pain and discomfort. She presents today for definitive management of a left obstructing ur eteral calculus, and based off the radiologist's read of the CT scan, we were prepared to manage a 1. 2 cm left kidney stone as well. During the preprocedure verification, I reviewed the images of the C T scan, and I was not able to visualize a stone within the left kidney, only seeing the distal ureter al calculus. Indeed, she had a stone in the right kidney. So, we contacted the radiology department , and the radiologist did verify the absence of any left kidney stones and the presence of the right kidney stone. As a result, since we were not consented to proceed with an attempt at management on t he right side, I proceeded with management of the obstructing left ureteral calculus. Procedure In Detail: The patient was consented in the preoperative holding area before being transfe rred to the operative suite where general anesthesia was induced. She was given ertapenem 1 g IV ant imicrobial prophylaxis, and pneumo boots were provided for DVT prophylaxis. She was placed in the li thotomy position, padded and secured to the table appropriately, and her genitalia were prepped with Hibiclens before being draped in standard fashion. The case was begun using a 22-Montenegrin rigid cystos cope to traverse the urethra and into the bladder with ease. Upon entry in the bladder, the urine wa s somewhat cloudy in appearance with a bit of fibrinous debris around the stent itself. I irrigated the bladder briefly in order to remove the debris and improve visualization. I then grasped the tip of the coil of the stent in the bladder and delivered that tip to the meatus. I was then able to pas s a Sensor wire via the indwelling stent with the proximal tip still within the proximal ureter/renal pelvis, and I was able to pass that wire up into and coil it within the putative renal pelvis. Leav ing the wire in place, I removed the stent and then switched the cystoscope for the direct vision joe i-rigid ureteroscope. Semi-rigid left ureteroscopy: I passed the semi-rigid ureteroscope via her urethra into her bladder and into the distal ureter up a couple of centimeters until the stone was encountered. It was free w ithout any sign of significant mucosal injury noted around it; so, I employed a 1.9-Montenegrin 0 tip Shawna nol basket to grasp the stone and deliver it from the ureteral orifice with ease. The stone was sent whole for chemical analysis. Because the stone was indeed in the distal ureter and only distal uret eroscopy was performed, I then backloaded the 5-Montenegrin ureteral access catheter over the safety wire and removed the wire. I then performed a retrograde pyelogram via the 5-Montenegrin ureteral access yomi ter, which confirmed the absence of any pelvocaliectasis or ureteronephrosis. The system appeared ni shari decompressed. As a result, I removed the 5-Montenegrin ureteral access catheter and then utilized e cystoscope and an obturator placed via her urethra into her bladder to decompress her bladder of fl uid and urine and a small blood clot. I then concluded the procedure and took the patient out of the lithotomy position. She was then awakened from general anesthesia before being transferred to a rust etcher and then transferred to the recovery room in good condition. Complications: None. Discharge Disposition: Since she has a radiolucent right renal calculus, we will discuss on followup whether she wishes to proceed with preemptive definitive management of that stone, which would requi re right-sided ureteroscopy with laser lithotripsy and stent placement versus exchange. She will be counseled that with significant ureteral spasm, it may be necessary to place a stent first and return subsequently for definitive ureteroscopic management of a nonobstructing kidney stone. Alternativel y, she may elect to wait until the stone attempts to pass and cause problems, at which point, more ti gonzalo intervention would be required. If she elects not to proceed with preemptive intervention on th e right side, a definitive metabolic profile assessment would be recommended given her recurrent ston e forming potential to decrease enucleation of the existing stone and creation of new kidney stones. WR/MODL Voice ID: [id number] Report ID: [id number]
== END 2023-11-13 12:50 | disposition home or self-care (01) ==
LOC: OR 08:49
PROVIDERS: ATTEND Urology
PROC: 0T778DZ Dilation of Left Ureter with Intraluminal Device, Via Natural or Artificial Opening Endoscopic (ICD-10-PCS; 2023-11-13)
PROC: 0TC78ZZ Extirpation of Matter from Left Ureter, Via Natural or Artificial Opening Endoscopic (ICD-10-PCS; principal; 2023-11-13 10:15)
DX: N20.2 Calculus of kidney with calculus of ureter (principal); T83.84XA Pain due to genitourinary prosthetic devices, implants and grafts, initial encounter; Z87.442 Personal history of urinary calculi
CPT/HCPCS: 52332; 52352; 87088; 85025; 87086; 80048; 36415; 85610; 88300; 82360; 74450; 51610; J2704; J2001; J2250; J3010; J1335; J1100; J2405; J7120